=== PATIENT | female | born 1930 | race Caucasian/White ===

== ENCOUNTER 2016-11-19 10:56 | Outpatient (CLI) ==
[2016-06-03 21:12] VITALS: BMI 27.0
[2016-11-19 12:03] LABS: ALBUMIN 3.2 g/dL (3.4-5.0); ALBUMIN/GLOBULIN RATIO 0.76; ANION GAP 18.8; BILIRUBIN,TOTAL 0.28 mg/dL (0.00-1.20); BUN/CREATININE RATIO 11.04; CALCIUM 9.1 mg/dL (8.2-10.2); POTASSIUM 5.8 mmol/L (3.5-5.10); TOTAL PROTEIN 7.4 g/dL (5.8-8.1)
[2016-11-19 12:09] LABS: CREATININE 4.89 mg/dL (0.60-1.30)
== END 2016-11-19 10:57 | disposition home or self-care (01) ==
LOC: LAB 10:56
PROVIDERS: ATTEND Internal Medicine
DX: N18.9 Chronic kidney disease, unspecified (principal)
CPT/HCPCS: 36415; 80053

== ENCOUNTER 2016-11-19 12:25 | Inpatient (IN) | payer OTHER ==
[2016-11-19] MEDS ORDERED: MORPHINE 4 MG/ML SYRINGE IVP PRN (12:39)
[2016-11-19] MEDS ORDERED: NITROSTAT SL PRN (12:39)
[2016-11-19] MEDS ORDERED: ATROPINE SULFATE PFS IVP PRN (12:39)
[2016-11-19] MEDS ORDERED: VISTARIL INJ IM PRN (12:39)
[2016-11-19 12:52] LABS: BASOPHILS # (AUTO) 0.1 K/uL (0-0.2); BASOPHILS % (AUTO) 0.7 % (0.0-3.0); EOSINOPHILS # (AUTO) 0.3 K/ul (0.0-0.7); HEMATOCRIT 30.5 % (37.0-47.0); HEMOGLOBIN 9.5 g/dl (12.0-16.0); IMMATURE GRANULOCYTE % (AUTO) 0.4 % (0.0-5.0); LYMPHOCYTES % (AUTO) 23.5 (10.0-50.0); MEAN CORPUSCULAR HEMOGLOBIN 30.4 pg (27.0-31.0); MEAN CORPUSCULAR HGB CONC 31.1 (31.8-35.4); MEAN CORPUSCULAR VOLUME 97.4 fl (81.0-99.0); MONOCYTES # (AUTO) 0.7 K/uL (0.4-2.0); MONOCYTES % (AUTO) 8.7 (0-10); NEUTROPHILS # (AUTO) 5.3 K/ul (2.0-6.9); NEUTROPHILS % (AUTO) 62.7; PLATELET COUNT 299 10^3/uL (140-440); RED BLOOD COUNT 3.13 10^6/ul (4.20-5.40)
[2016-11-19] MEDS ORDERED: ZOFRAN TAB PO PRN (12:55)
[2016-11-19 13:03] LABS: ABG BASE EXCESS -4 (-2.0-2.0); ABG HCO3 22.7 (22.0-26.0); ABG PCO2 46.2 mmHg (35-45); ABG PH 7.299 (7.35-7.45); ABG TCO2 24 (22.0-28.0)
[2016-11-19 13:05] VITALS: BMI 27.6
[2016-11-19 13:07] LABS: TROPONIN I 0.014 ng/ml (0.0000-0.4000)
--- NOTE | 2016-11-19 13:43 | DI ---
EXAM: Chest one view, frontal view only. HISTORY: Anemia. Hyperkalemia. Hypertension. COMPARISON: 06/03/2010. FINDINGS: The heart size is normal. Atherosclerotic calcifications present. There is no pulmonary vascular congestion. The lungs are clear save for calcified granulomatous changes. No pleural eff usion or pneumothorax is seen. No acute osseous abnormality is identified. Degenerative changes of the shoulders of flattening of the right humeral head. Suspect small hiatal hernia . Since the pr ior study, there has been no significant interval change. IMPRESSION: No acute cardiopulmonary process.
--- NOTE | 2016-11-19 13:58 | CT ---
EXAM: CT Abdomen without contrast. CT Pelvis without contrast. HISTORY: Anemia. Abnormal renal function. COMPARISON: 11/10/2010. TECHNIQUE: Multiple axial images of the abdomen and pelvis were obtained without intravenous contra st. Images were reformatted in the coronal plane. FINDINGS: Please note that evaluation of the abdominal and pelvic structures is limited due to lack of intravenous contrast. Right middle lobe scarring noted. Degenerative changes seen in the spine with old compression defor mities of T12 and L1. Gallbladder is absent. The liver, pancreas, spleen, and adrenal glands demonstrate normal contour. There is severe bilateral hydronephrosis/hydroureter to the level of the urinary bladder. There is irregular posterior urinary bladder wall thickening. Uterus is absent. There is no evidence for bowel obstruction or acute inflammation. Diverticula are present in the co kevin. No free fluid or free air identified. Atherosclerotic calcifications are present. IMPRESSION: Severe bilateral hydronephrosis/hydroureter due to obstruction by irregular posterior urinary bladde r wall thickening, which could be infectious, inflammatory or neoplastic in nature.
[2016-11-19] MEDS: DEXTROSE 5%-1/2NS IV SOLUTION 1,000 ML IV SCH (14:00)
[2016-11-19] MEDS ORDERED: SODIUM BICARBONATE 7.5% IVP STA (14:27)
[2016-11-19 15:59] LABS: BILIRUBIN,URINE Negative (NEGATIVE); KETONES,URINE Negative (NEGATIVE); LEUKOCYTE ESTERASE ,URINE 3+ (NEGATIVE); NITRITE,URINE Positive (NEGATIVE); PROTEIN,URINE 2+ (NEGATIVE); URINE, BLOOD 2+ (NEGATIVE)
[2016-11-19] MEDS ORDERED: ZOFRAN 4 MG/2 ML IVP PRN (16:07)
[2016-11-19 16:20] LABS: ADD URINE MICROSCOPIC YES
[2016-11-19 16:22] LABS: BACTERIA,URINE 3+ (NOT PRESENT)
[2016-11-19] MEDS ORDERED: XANAX PO SCH (17:00)
[2016-11-19] MEDS ORDERED: ROCEPHIN 1 GM in SODIUM CHLORIDE 100 ML IV STA (17:06)
[2016-11-19] MEDS ORDERED: ROCEPHIN ONE (17:38)
[2016-11-19] MEDS: ZANTAC PO SCH (20:30)
[2016-11-19] MEDS: ADVAIR 100-50 DISKUS IH SCH (20:30)
[2016-11-19 21:12] LABS: TROPONIN I 0.023 ng/ml (0.0000-0.4000)
[2016-11-20] MEDS: DEXTROSE 5%-1/2NS IV SOLUTION 1,000 ML IV SCH ×2 (03:14→16:20)
[2016-11-20] MEDS: PROTONIX PO SCH (05:30)
[2016-11-20] MEDS: SYNTHROID PO SCH (05:30)
[2016-11-20 05:46] LABS: BASOPHILS # (AUTO) 0.1 K/uL (0-0.2); BASOPHILS % (AUTO) 0.4 % (0.0-3.0); EOSINOPHILS # (AUTO) 0.1 K/ul (0.0-0.7); EOSINOPHILS % (AUTO) 0.9 % (0.0-7.0); HEMATOCRIT 27.4 % (37.0-47.0); HEMOGLOBIN 8.6 g/dl (12.0-16.0); IMMATURE GRANULOCYTE % (AUTO) 0.4 % (0.0-5.0); LYMPHOCYTES # (AUTO) 1.5 K/uL (0.60-3.4); LYMPHOCYTES % (AUTO) 13.1 (10.0-50.0); MEAN CORPUSCULAR HEMOGLOBIN 30.1 pg (27.0-31.0); MEAN CORPUSCULAR HGB CONC 31.4 (31.8-35.4); MEAN CORPUSCULAR VOLUME 95.8 fl (81.0-99.0); MONOCYTES # (AUTO) 0.9 K/uL (0.4-2.0); MONOCYTES % (AUTO) 7.6 (0-10); NEUTROPHILS # (AUTO) 8.7 K/ul (2.0-6.9); NEUTROPHILS % (AUTO) 77.6; PLATELET COUNT 241 10^3/uL (140-440); RED BLOOD COUNT 2.86 10^6/ul (4.20-5.40); WHITE BLOOD COUNT 11.16 K/ul (4.6-10.2)
[2016-11-20 06:13] LABS: ALBUMIN 2.7 g/dL (3.4-5.0); ALBUMIN/GLOBULIN RATIO 0.69; ANION GAP 15.7; BILIRUBIN,TOTAL 0.29 mg/dL (0.00-1.20); BUN/CREATININE RATIO 11.53; CALCIUM 8.6 mg/dL (8.2-10.2); POTASSIUM 4.7 mmol/L (3.5-5.10); TOTAL PROTEIN 6.6 g/dL (5.8-8.1)
[2016-11-20 06:15] LABS: CREATININE 4.68 mg/dL (0.60-1.30)
[2016-11-20] MEDS ORDERED: AZACTAM IV STA (08:54)
[2016-11-20] MEDS ORDERED: SODIUM CHLORIDE IV STA (08:54)
[2016-11-20] MEDS ORDERED: NON-FORMULARY MEDICATION (Esomeprazole Magnesium [Nexium] 40 MG) PO SCH ×22 (09:00)
[2016-11-20] MEDS ORDERED: CANDESARTAN CILEXETIL 32 MG PO SCH (09:00)
[2016-11-20] MEDS ORDERED: NON-FORMULARY MEDICATION (Escitalopram Oxalate [Lexapro] 20 MG) PO SCH ×22 (09:00)
[2016-11-20] MEDS: LEXAPRO PO SCH (09:34)
[2016-11-20] MEDS: ADVAIR 100-50 DISKUS IH SCH ×2 (09:34→20:30)
[2016-11-20] MEDS: ATACAND PO SCH (09:34)
[2016-11-20] MEDS: ROCEPHIN 1 GM in SODIUM CHLORIDE 100 ML IV SCH (09:35)
[2016-11-20] MEDS: ASPIRIN EC PO SCH (09:35)
--- NOTE | 2016-11-20 10:10 | HP ---
DATE OF SERVICE: 11/19/16 REASON FOR HOSPITALIZATION/HISTORY OF PRESENT ILLNESS: This is an 86-year-old female who was seen on 11/17/16 for right shoulder pain. The patient also felt tired and fatigued. Routine labs done on 11/17/16 showed she was in acute renal failure with creatinine 4.74 with BUN of 64. Previous creatinine 1.5; BUN 78 on 06/05. K+ 5.5 with HGB/HCT 9.7 and 30.6. The patient agreed for hospitalization but states, "I don't want any dialysis." REVIEW OF SYSTEMS: CONSTITUTIONAL: Fatigue. No fever. No night sweats. HEENT: Eyes: No visual changes. No eye pain. No eye discharge. ENT: No runny nose. No epistaxis. No sinus pain. No sore throat. No odynophagia. No ear pain. No congestion. RESPIRATORY: No cough, no congestion. No hemoptysis. CARDIOVASCULAR: No angina symptoms. No CHF symptoms. No atypical chest pain for CAD. No palpitations. No shortness of breath. GASTROINTESTINAL: Mild nausea No abdominal pain. No diarrhea or constipation. No hematemesis. No hematochezia. GENITOURINARY: No hematuria. No polyuria. MUSCULOSKELETAL: Osteoarthritis pain. MICE RAISER: Dizziness. No headache. No neck pain. No syncope. No seizures. PSYCHIATRIC: Not anxious. No depression. No suicidal thoughts. No homicidal thoughts. SKIN: No rash. No lesions. No wounds. ENDOCRINE: No unexplained weight loss. No weight gain. HEMATOLOGIC/LYMPHATIC: No anemia. No purpura. No petechiae. No prolonged or excessive bleeding. No palpable lymph nodes. PERSONAL/FAMILY/SOCIAL HISTORY: The patient is a , lives by herself with the help of two sons. She is up and about, does most activity of daily living. Nonsmoker. No alcohol abuse. PAST MEDICAL/SURGICAL PROBLEMS: 1. CA of the bladder 2. Generalized anxiety disorder 3. Hypertension 4. Depression 5. COPD status post cholecystectomy 6. History of T12 fracture 7. Chronic kidney disease, Stage 3 MEDICATIONS: (HOME) 1. Fluvastatin Sodium (Lescol XL) 80 mg p.o. daily 2. Candesartan Cilexetil (Atacand) 32 mg p.o. daily 3. Ranitidine (Zantac) 150 mg p.o. bedtime 4. Esomeprazole Magnesium (Nexium) 40 mg p.o. daily 5. Levothyroxine Sodium (Synthroid) 50 mcg p.o. q.d a.c. 6. Escitalopram Oxalate (Lexapro) 20 mg p.o. daily 7. Alprazolam (Xanax) 0.5 mg p.o. q.p.m. 8. Ondansetron (Zofran) 4 mg p.o. b.i.d. p.r.n. 9. Fluticasone/Salmeterol (Advair 100-50 Diskus) one each IH b.i.d. ALLERGIES: IODINATED CONTRAST MEDIA, ORAL AND, TETRACYCLINES PHYSICAL EXAMINATION: GENERAL: Oriented times three. Pallor positive. VITAL SIGNS: Pulse 68, BP 118/70, 02 sat 95%. Height 4'9", BMI 27.9, weight 129 pounds. HEENT: Head normocephalic, atraumatic. Eyes: Extraocular muscles are intact. Pupils are equal, round and reactive to light and accommodation. Ears: No lesions. Nose appeared normal. Throat: No exudate or erythema. NECK: Supple. No JVD, no carotid bruit. No lymphadenopathy or thyromegaly. LUNGS: Clear to auscultation. Percussion note normal. Chest symmetrical. HEART: S1, S2, no S3. No murmurs. No cyanosis or clubbing. No ascites. Pulses: Dorsalis pedis and posterior tibial pulses +1 to +2 both sides. ABDOMEN: Soft. Nontender. Bowel sounds active. No CVA tenderness. No mass felt. EXTREMITIES: No edema. Full range of motion of all extremities, equal. NEUROLOGIC: No focal deficit. Cranial nerves II through XII are grossly intact. No headache, no double vision or headache. SKIN: Not dry. Intact. Turgor - normal. LYMPHATIC: No palpable lymph nodes/no lymphedema. MUSCULOSKELETAL: Normal joints with no swelling. Muscle tone is normal. RECTAL: Colonoscopy - Dr. Aguilar, 2008. Pelvic: Advised yearly. Mammogram - patient refused. LABS 11/19/16: ABGs showed pH 7.29 with p02 of 71, pc02 of 46 with oxygen saturation of 92% with base excess of minus 4. Cardiac markers are negative. T4, TSH normal. CT scan of the abdomen showed severe bilateral hydronephrosis with hydroureter due to obstruction by irregular posterior urinary bladder wall thickening. Chest x- ray normal. Hemoglobin 9.5, hematocrit 30, WBC 8,500, normal differential. Potassium 5.8. Liver profile normal. ASSESSMENT: (After reviewing the labs) 1. ACUTE RENAL FAILURE 2. METABOLIC ACIDOSIS 3. HYDRONEPHROSIS WITH HYDROURETER WITH OBSTRUCTION WITH IRREGULAR BLADDER WALL; THE PATIENT HAS A HISTORY OF CANCER OF THE BLADDER 4. HYPERKALEMIA FROM RENAL FAILURE 5. ANEMIA, MIXED 6. HYPERTENSION 7. COPD 8. STATUS POST CHOLECYSTECTOMY 9. T12 FRACTURE COMPRESSION 10. CKD STAGE 3 PRIOR TO RENAL FAILURE 11. DEPRESSION 12. GENERALIZED ANXIETY DISORDER PLAN: (Admit Regular) 1. The patient was given one ampule of sodium bicarb to bring the potassium down. 2. The patient will undergo a CBC with diff daily. 3. UA was somewhat abnormal, cloudy urine with +3 bacteria. The patient has been given Rocephin 1 gm. 4. Routine telemetry orders 5. ABG today 6. Continue all home medications 7. 1000 cc D5 1/2 NS q.12hourly 8. Daily CBC/CMP 9. T4, TSH 10. UA with culture and sensitivity 11. CT scan of abdomen and pelvis with contrast CONDITION: Stable TIME SPENT: More than 70 minutes. MTDD
[2016-11-20] MEDS: FLUVASTATIN SODIUM 80 MG PO SCH (11:02)
[2016-11-20] MEDS: XANAX PO PRN (14:01)
[2016-11-20] MEDS: ZANTAC PO SCH (20:30)
[2016-11-20] MEDS: SODIUM CHLORIDE IV SCH (20:30)
[2016-11-20] MEDS: AZACTAM IV SCH (20:30)
[2016-11-21] MEDS: DEXTROSE 5%-1/2NS IV SOLUTION 1,000 ML IV SCH ×2 (05:10→18:06)
[2016-11-21] MEDS: SYNTHROID PO SCH (05:37)
[2016-11-21] MEDS: PROTONIX PO SCH (05:37)
[2016-11-21 07:29] LABS: BASOPHILS % (AUTO) 0.3 % (0.0-3.0); EOSINOPHILS # (AUTO) 0.3 K/ul (0.0-0.7); EOSINOPHILS % (AUTO) 3.3 % (0.0-7.0); HEMATOCRIT 26.4 % (37.0-47.0); HEMOGLOBIN 8.4 g/dl (12.0-16.0); IMMATURE GRANULOCYTE % (AUTO) 0.6 % (0.0-5.0); LYMPHOCYTES # (AUTO) 1.7 K/uL (0.60-3.4); LYMPHOCYTES % (AUTO) 19.7 (10.0-50.0); MEAN CORPUSCULAR HEMOGLOBIN 30.3 pg (27.0-31.0); MEAN CORPUSCULAR HGB CONC 31.8 (31.8-35.4); MEAN CORPUSCULAR VOLUME 95.3 fl (81.0-99.0); MONOCYTES # (AUTO) 0.7 K/uL (0.4-2.0); MONOCYTES % (AUTO) 7.7 (0-10); NEUTROPHILS # (AUTO) 6.1 K/ul (2.0-6.9); NEUTROPHILS % (AUTO) 68.4; PLATELET COUNT 230 10^3/uL (140-440); RED BLOOD COUNT 2.77 10^6/ul (4.20-5.40); WHITE BLOOD COUNT 8.85 K/ul (4.6-10.2)
[2016-11-21 07:54] LABS: ALBUMIN 2.7 g/dL (3.4-5.0); ALBUMIN/GLOBULIN RATIO 0.68; ANION GAP 16.8; BILIRUBIN,TOTAL 0.27 mg/dL (0.00-1.20); BUN/CREATININE RATIO 10.51; CALCIUM 8.8 mg/dL (8.2-10.2); POTASSIUM 4.8 mmol/L (3.5-5.10); TOTAL PROTEIN 6.7 g/dL (5.8-8.1)
[2016-11-21 08:02] LABS: CREATININE 4.09 mg/dL (0.60-1.30)
[2016-11-21] MEDS: ATACAND PO SCH (08:42)
[2016-11-21] MEDS: LEXAPRO PO SCH (08:42)
[2016-11-21] MEDS: ADVAIR 100-50 DISKUS IH SCH ×2 (08:42→20:13)
[2016-11-21] MEDS: AZACTAM IV SCH ×2 (08:43→20:13)
[2016-11-21] MEDS: SODIUM CHLORIDE IV SCH ×2 (08:43→20:13)
[2016-11-21] MEDS: ASPIRIN EC PO SCH (08:43)
[2016-11-21] MEDS: TYLENOL PO PRN (08:52)
[2016-11-21] MEDS: ROCEPHIN 1 GM in SODIUM CHLORIDE 100 ML IV SCH (09:48)
[2016-11-21] MEDS: FLUVASTATIN SODIUM 80 MG PO SCH (09:48)
[2016-11-21] MEDS ORDERED: MILK OF MAGNESIA PO PRN (10:10)
[2016-11-21] MEDS: ZANTAC PO SCH (20:13)
[2016-11-21] MEDS: XANAX PO PRN (20:14)
[2016-11-21] MEDS ORDERED: INVANZ IV SCH (21:00)
[2016-11-21] MEDS ORDERED: SODIUM CHLORIDE IV SCH (21:00)
[2016-11-22 05:08] LABS: BASOPHILS % (AUTO) 0.5 % (0.0-3.0); EOSINOPHILS # (AUTO) 0.4 K/ul (0.0-0.7); HEMATOCRIT 26.6 % (37.0-47.0); HEMOGLOBIN 8.3 g/dl (12.0-16.0); IMMATURE GRANULOCYTE % (AUTO) 0.6 % (0.0-5.0); LYMPHOCYTES # (AUTO) 1.9 K/uL (0.60-3.4); LYMPHOCYTES % (AUTO) 22.8 (10.0-50.0); MEAN CORPUSCULAR HGB CONC 31.2 (31.8-35.4); MONOCYTES # (AUTO) 0.6 K/uL (0.4-2.0); MONOCYTES % (AUTO) 6.7 (0-10); NEUTROPHILS # (AUTO) 5.3 K/ul (2.0-6.9); NEUTROPHILS % (AUTO) 64.4; PLATELET COUNT 243 10^3/uL (140-440); RED BLOOD COUNT 2.77 10^6/ul (4.20-5.40); WHITE BLOOD COUNT 8.19 K/ul (4.6-10.2)
[2016-11-22] MEDS: PROTONIX PO SCH (05:37)
[2016-11-22] MEDS: SYNTHROID PO SCH (05:37)
[2016-11-22 05:40] LABS: ALBUMIN 2.6 g/dL (3.4-5.0); ALBUMIN/GLOBULIN RATIO 0.65; ANION GAP 13.8; BILIRUBIN,TOTAL 0.2 mg/dL (0.00-1.20); BUN/CREATININE RATIO 10.51; POTASSIUM 4.8 mmol/L (3.5-5.10); TOTAL PROTEIN 6.6 g/dL (5.8-8.1)
[2016-11-22 05:41] LABS: CREATININE 3.9 mg/dL (0.60-1.30)
[2016-11-22] MEDS: ADVAIR 100-50 DISKUS IH SCH ×2 (08:04→19:59)
[2016-11-22] MEDS: ATACAND PO SCH (08:05)
[2016-11-22] MEDS: LEXAPRO PO SCH (08:05)
[2016-11-22] MEDS: ROCEPHIN 1 GM in SODIUM CHLORIDE 100 ML IV SCH (08:05)
[2016-11-22] MEDS: ASPIRIN EC PO SCH (08:05)
[2016-11-22] MEDS: DEXTROSE 5%-1/2NS IV SOLUTION 1,000 ML IV SCH (08:06)
[2016-11-22] MEDS: FLUVASTATIN SODIUM 80 MG PO SCH (08:06)
[2016-11-22] MEDS: AZACTAM IV SCH ×2 (09:19→19:59)
[2016-11-22] MEDS: SODIUM CHLORIDE IV SCH ×2 (09:19→19:59)
[2016-11-22] MEDS: ZANTAC PO SCH (19:59)
[2016-11-22] MEDS: XANAX PO PRN (20:03)
[2016-11-22 20:11] LABS: HEMATOCRIT 32.8 % (37.0-47.0); HEMOGLOBIN 10.6 g/dl (12.0-16.0)
[2016-11-23] MEDS: DEXTROSE 5%-1/2NS IV SOLUTION 1,000 ML IV SCH ×2 (01:58→16:08)
[2016-11-23 04:39] LABS: BASOPHILS # (AUTO) 0.1 K/uL (0-0.2); BASOPHILS % (AUTO) 0.6 % (0.0-3.0); EOSINOPHILS # (AUTO) 0.5 K/ul (0.0-0.7); EOSINOPHILS % (AUTO) 5.3 % (0.0-7.0); HEMATOCRIT 29.7 % (37.0-47.0); HEMOGLOBIN 9.7 g/dl (12.0-16.0); IMMATURE GRANULOCYTE % (AUTO) 0.5 % (0.0-5.0); LYMPHOCYTES # (AUTO) 2.1 K/uL (0.60-3.4); LYMPHOCYTES % (AUTO) 24.2 (10.0-50.0); MEAN CORPUSCULAR HEMOGLOBIN 30.4 pg (27.0-31.0); MEAN CORPUSCULAR HGB CONC 32.7 (31.8-35.4); MEAN CORPUSCULAR VOLUME 93.1 fl (81.0-99.0); MONOCYTES # (AUTO) 0.6 K/uL (0.4-2.0); MONOCYTES % (AUTO) 6.9 (0-10); NEUTROPHILS # (AUTO) 5.3 K/ul (2.0-6.9); NEUTROPHILS % (AUTO) 62.5; PLATELET COUNT 238 10^3/uL (140-440); RED BLOOD COUNT 3.19 10^6/ul (4.20-5.40); WHITE BLOOD COUNT 8.46 K/ul (4.6-10.2)
[2016-11-23 05:00] LABS: ALBUMIN 2.5 g/dL (3.4-5.0); ALBUMIN/GLOBULIN RATIO 0.63; ANION GAP 13.6; BILIRUBIN,TOTAL 0.34 mg/dL (0.00-1.20); BUN/CREATININE RATIO 10.17; CALCIUM 8.7 mg/dL (8.2-10.2); CREATININE 3.44 mg/dL (0.60-1.30); POTASSIUM 4.6 mmol/L (3.5-5.10); TOTAL PROTEIN 6.5 g/dL (5.8-8.1)
[2016-11-23] MEDS: PROTONIX PO SCH (05:30)
[2016-11-23] MEDS: SYNTHROID PO SCH (05:30)
[2016-11-23] MEDS ORDERED: CITRATE OF MAGNESIA PO STA (08:37)
[2016-11-23] MEDS: SODIUM CHLORIDE IV SCH ×2 (08:50→21:12)
[2016-11-23] MEDS: ATACAND PO SCH (08:50)
[2016-11-23] MEDS: ADVAIR 100-50 DISKUS IH SCH ×2 (08:50→21:12)
[2016-11-23] MEDS: AZACTAM IV SCH ×2 (08:50→21:12)
[2016-11-23] MEDS: ASPIRIN EC PO SCH (08:51)
[2016-11-23] MEDS: LEXAPRO PO SCH (08:51)
[2016-11-23] MEDS: FLUVASTATIN SODIUM 80 MG PO SCH (08:52)
[2016-11-23 09:16] LABS: ABG BASE EXCESS -3 (-2.0-2.0); ABG HCO3 23.1 (22.0-26.0); ABG PCO2 43.1 mmHg (35-45); ABG PH 7.337 (7.35-7.45); ABG TCO2 24 (22.0-28.0)
[2016-11-23] MEDS: ROCEPHIN 1 GM in SODIUM CHLORIDE 100 ML IV SCH (09:58)
--- NOTE | 2016-11-23 13:20 | PCM.PROG ---
Attending Provider: ATTENDING PROVIDER: Dr. SARA DAILY DATE OF SERVICE: 11/23/16 SUBJECTIVE: This 86 year old WHITE/ F was hospitalized 11/19/16. The patient is hospitalized with acute renal failure, hyperkalemia, and hydronephrosis The patient's condition has improved remarkably. Kidney functions are better; BUN and creatinine stable. Metabolic acidosis is resolved. Hyperkalemia has resolved. Scanlon is draining clear urine today. The patient complains of lower abdominal pain. REVIEW OF SYSTEMS: CONSTITUTIONAL: No night sweats. No fatigue, malaise, lethargy. No fever or chills. HEENT: Eyes: No visual changes. No eye pain. No eye discharge. ENT: No runny nose. No epistaxis. No sinus pain. No odynophagia. No congestion. RESPIRATORY: No cough, no congestion. No hemoptysis. CARDIOVASCULAR: No angina symptoms. No CHF symptoms. No atypical chest pain for CAD. No palpitations. No shortness of breath. GASTROINTESTINAL: Appetite is better. No abdominal pain. No nausea or vomiting. No diarrhea or constipation. No hematemesis. No hematochezia. GENITOURINARY: Scanlon in place draining clear urine. No urgency. No frequency. No dysuria. No hematuria. No obstructive symptoms. No discharge. No pain. No significant abnormal bleeding. MUSCULOSKELETAL: No musculoskeletal pain; no joint swelling. NEUROLOGICAL: Awake, alert, oriented to time, place and person. No headache. No neck pain. No syncope. No seizures. No dizziness. PSYCHIATRIC: Not anxious. No depression. No suicidal thoughts. No homicidal thoughts. SKIN: No rash. No lesions. No wounds. ENDOCRINE: No unexplained weight loss. No weight gain. HEMATOLOGIC/LYMPHATIC: No anemia. No purpura. No petechiae. No prolonged or excessive bleeding. No palpable lymph nodes. PHYSICAL EXAMINATION: GENERAL: The patient is awake, alert and oriented, sitting in the chair in no distress. VITAL SIGNS: Temperature 97.1 F, Pulse 67, Respiratory Rate 17, BP 172/83, Pulse Ox 94% HEENT: Head normocephalic, atraumatic. Eyes: Extraocular muscles are intact. Pupils are equal, round and reactive to light and accommodation. Ears: No lesions. Nose appeared normal. Throat: No exudate or erythema. NECK: Supple. No JVD, no carotid bruit. No lymphadenopathy or thyromegaly. LUNGS: Clear to auscultation. Percussion note normal. Chest symmetrical. HEART: S1, S2, no S3. No murmurs. No cyanosis or clubbing. No ascites. Pulses: Dorsalis pedis and posterior tibial pulses +1 to +2 both sides. ABDOMEN: Soft. Non-tender. Bowel sounds active. No CVA tenderness. No mass felt. EXTREMITIES: No edema. Full range of motion of all extremities, equal. NEUROLOGIC: No focal deficit. Cranial nerves II through XII are grossly intact. No headache, no double vision or headache. SKIN: Not dry. Intact. Turgor-normal. LYMPHATIC: No palpable lymph nodes/no lymphedema. MUSCULOSKELETAL: Normal joints with no swelling. Muscle tone is normal. LAB REVIEW: 11/23/16 04:30 11/23/16 04:30 11/23/16 04:30: WBC 8.46, RBC 3.19 L, Hgb 9.7 L, Hct 29.7 L, MCV 93.1, MCH 30.4 , MCHC 32.7, RDW Coeff of Roberta 14.2, Plt Count 238, Immature Gran % (Auto) 0.5, Neut % (Auto) 62.5, Lymph % (Auto) 24.2, [place] % (Auto) 6.9, Eos % (Auto) 5.3, Baso % (Auto) 0.6, Immature Gran # (Auto) 0.0, Neut # 5.3, Lymph # 2.1, [place] # 0.6, Eos # 0.5, Baso # 0.1, Sodium 139, Potassium 4.6, Chloride 106, Carbon Dioxide 24, Anion Gap 13.6, BUN 35 H, Creatinine 3.44 H, Estimated GFR (MDRD) 13.00, BUN/Creatinine Ratio 10.17, Glucose 109, Calcium 8.7, Total Bilirubin 0.34, AST 17, ALT 16, Alkaline Phosphatase 74, Total Protein 6.5, Albumin 2.5 L , Globulin 4.0, Albumin/Globulin Ratio 0.63 11/22/16 20:09: Hgb 10.6 L, Hct 32.8 L D 11/22/16 09:10: Blood Type A POSITIVE, Antibody Screen Negative, Crossmatch (AHG ) See Detail ASSESSMENT: 1. Acute renal failure, resolving 2. Hyperkalemia, resolved 3. Appetite is better 4. Constipation, will give Mag Citrate 5. Anemia from renal failure. The patient has been given one unit of PRBC. Hemoglobin (9.7) and hematocrit (29.7) are better than yesterday. PLAN: 1. CT scan of abdomen and pelvis w/o contrast 2. ABG 3. 1/2 bottle of Mag Citrate to help with constipation 4. PT evaluation Plan and coordination of the patient's care discussed in the presence of Home Improvement Contractor and nurse. CONDITION: Stable SCRIBED BY: BEAR BUTT Bander Operator scribed while in presence of service performed by Dr. SARA DAILY on 11/23/16 ([id number])
--- NOTE | 2016-11-23 13:51 | PN ---
DATE OF SERVICE: 11/21/16 SUBJECTIVE: The patient is a 86 year old white female hospitalized with acute renal failure , hyperkalemia and anemia. The patient on further testing has hydronephrosis originating from ureterovesical junction obstructions bilaterally could be from inflammation infection and history of bladder cancer somehow causing factors which are not known to me with some obstructions. The patient's labs tests and everything has been sent to Dr. Callahan/Dr. Conway, he is supposed to be plant technician/control room operator over the weekend. The patient's condition has improved and the patient is feeling a lot better. Urine output is adequate. She has practically 1,500cc urine output within 12 hours. Her creatinine and BUN has improved to 4 and 30 now which is quite a bit improving from 4.6 and 54 on the previous day. The patient does not have symptoms of fluid overload. REVIEW OF SYSTEMS: CONSTITUTIONAL: No night sweats. No fatigue, malaise, lethargy. No fever or chills. HEENT: Eyes: No visual changes. No eye pain. No eye discharge. ENT: No runny nose. No epistaxis. No sinus pain. No sore throat. No odynophagia. No congestion. RESPIRATORY: No cough, no congestion. No hemoptysis. CARDIOVASCULAR: No angina symptoms. No CHF symptoms. No atypical chest pain for CAD. No palpitations. No shortness of breath. No PND. No orthopnea. GASTROINTESTINAL: No abdominal pain. Mild nausea. No diarrhea or constipation. No hematemesis. No hematochezia. Appetite seems to be improving. The strength seems to be improving. GENITOURINARY: No urgency. No frequency. No dysuria. No hematuria. No obstructive symptoms. No discharge. No pain. No significant abnormal bleeding. MUSCULOSKELETAL: No musculoskeletal pain; no joint swelling. NEUROLOGICAL: No headache. No neck pain. No syncope. No seizures. No dizziness. PSYCHIATRIC: Not anxious. No depression. No suicidal thoughts. No homicidal thoughts. SKIN: No rash. No lesions. No wounds. ENDOCRINE: No unexplained weight loss. No weight gain. HEMATOLOGIC/LYMPHATIC: No anemia. No purpura. No petechiae. No prolonged or excessive bleeding. No palpable lymph nodes. PHYSICAL EXAMINATION: GENERAL: The patient is oriented to time, place and person. VITAL SIGNS: Temperature 97.2, pulse 60, respiratory rate 20, blood pressure 130/66 and pulse ox 96%. HEENT: Head normocephalic, atraumatic. Eyes: Extraocular muscles are intact. Pupils are equal, round and reactive to light and accommodation. Ears: No lesions. Nose appeared normal. Throat: No exudate or erythema. NECK: Supple. No JVD, no carotid bruit. No lymphadenopathy or thyromegaly. LUNGS: Decreased breath sounds but clear to auscultation. Percussion note normal. Chest symmetrical. HEART: S1, S2, no S3. No murmurs. No cyanosis or clubbing. No ascites. Pulses: Dorsalis pedis and posterior tibial pulses +1 to +2 both sides. ABDOMEN: Soft. Nontender. Bowel sounds active. No CVA tenderness. No mass felt. EXTREMITIES: No edema. Full range of motion of all extremities, equal. NEUROLOGIC: No focal deficit. Cranial nerves II through XII are grossly intact. No headache, no double vision or headache. SKIN: Not dry. Intact. Turgor - normal. LYMPHATIC: No palpable lymph nodes/no lymphedema. MUSCULOSKELETAL: Normal joints with no swelling. Muscle tone is normal. LABS: hgb 8, hct 27. creatinine 4 and BUN 30. The patient's urine showed gram negative rods. ASSESSMENT: 1. Acute renal failure 2. Hyperkalemia 3. Metabolic acidosis 4. Bilateral Hydronephrosis, post renal obstruction with problem that ureterovesical junction. PLAN: 1. Continue IV fluids 2. Continue Rocephin 3. Continue to monitor patient for fluid overload 4. Zofran IV to be give for nausea CONDITION: Stable and improving TIME SPENT: More than 30 minutes. Plan and coordination of the patient's care discussed in the presence of nurse. PATEL
--- NOTE | 2016-11-23 14:30 | PN ---
DATE OF SERVICE: 11/22/16 SUBJECTIVE: The patient is an 86 year old white female hospitalized with acute renal failure with hydronephrosis and hydroureter and hyperkalemia with metabolic acidosis. The patient's condition has steadily improved and her appetite it somewhat better and she is still weak. Her urine output is adequate. REVIEW OF SYSTEMS: CONSTITUTIONAL: No night sweats. Still weakness. No fever or chills. HEENT: Eyes: No visual changes. No eye pain. No eye discharge. ENT: No runny nose. No epistaxis. No sinus pain. No sore throat. No odynophagia. No congestion. RESPIRATORY: No cough, no congestion. No hemoptysis. CARDIOVASCULAR: No angina symptoms. No CHF symptoms. No atypical chest pain for CAD. No palpitations. No shortness of breath. No PND. No orthopnea. No chest pain. GASTROINTESTINAL: No abdominal pain. No nausea or vomiting. No diarrhea or constipation. No hematemesis. No hematochezia. Appetite is improving some. GENITOURINARY: No urgency. No frequency. No dysuria. No hematuria. No obstructive symptoms. No discharge. No pain. No significant abnormal bleeding. MUSCULOSKELETAL: No musculoskeletal pain; no joint swelling. NEUROLOGICAL: No headache. No neck pain. No syncope. No seizures. No dizziness. PSYCHIATRIC: Not anxious. No depression. No suicidal thoughts. No homicidal thoughts. SKIN: No rash. No lesions. No wounds. ENDOCRINE: No unexplained weight loss. No weight gain. HEMATOLOGIC/LYMPHATIC: No anemia. No purpura. No petechiae. No prolonged or excessive bleeding. No palpable lymph nodes. PHYSICAL EXAMINATION: GENERAL: The patient is oriented to time, place and person. VITAL SIGNS: Temperature 97.7, pulse 66, respiratory rate 14, blood pressure 153/73 and pulse ox 94%. HEENT: Head normocephalic, atraumatic. Eyes: Extraocular muscles are intact. Pupils are equal, round and reactive to light and accommodation. Ears: No lesions. Nose appeared normal. Throat: No exudate or erythema. NECK: Supple. No JVD, no carotid bruit. No lymphadenopathy or thyromegaly. LUNGS: Decreased breath sounds but clear to auscultation. Percussion note normal. Chest symmetrical. HEART: S1, S2, no S3. No murmurs. No cyanosis or clubbing. No ascites. Pulses: Dorsalis pedis and posterior tibial pulses +1 to +2 both sides. ABDOMEN: Soft. Nontender. Bowel sounds active. No CVA tenderness. No mass felt. EXTREMITIES: No edema. Full range of motion of all extremities, equal. NEUROLOGIC: No focal deficit. Cranial nerves II through XII are grossly intact. No headache, no double vision or headache. SKIN: Not dry. Intact. Turgor - normal. LYMPHATIC: No palpable lymph nodes/no lymphedema. MUSCULOSKELETAL: Normal joints with no swelling. Muscle tone is normal. LABS: Hgb 8.3, hct 26, WBC 8,000 normal differential, creatinine 4, BUN 43 and potassium 4.8. ASSESSMENT: 1. Acute renal failure from post renal obstruction likely at the ureterovesical junction cause could be infection and or bladder cancer 2. Urinary tract infection with gram negative rods 3. Metabolic acidosis secondary to renal failure 4. Hyperkalemia, resolved 5. Anemia Secondary to chronic renal failure and or nutritional PLAN: 1. Type and cross match two units 2. Transfuse one unit 3. Continue Rocephin 4. Dulcolax suppository for constipation 5. Continue IV fluids 6. Monitor input and output 7. Daily CBC and CMP 8. Will repeat CT scan of the abdomen tomorrow. TIME SPENT: More than 30 minutes. Plan and coordination of the patient's care discussed in the presence of nurse. PATEL
--- NOTE | 2016-11-23 15:19 | CT ---
EXAM: CT ABDOMEN AND PELVIS HISTORY: Hydronephrosis, follow-up. Bladder cancer. TECHNIQUE: CT abdomen and pelvis without intravenous contrast. Images were reconstructed using 5 m m section thickness. Reformations were prepared. COMPARISON: 11/19/2016 FINDINGS: Moderate bilateral hydronephrosis and hydroureter remain unchanged. No renal or ureteral calculi ar e identified. Interval placement of a Scanlon catheter with decompression of the urinary bladder. Th e asymmetric thickening of the bladder wall previously described is poorly seen secondary to the non distension of the organ. This may be related to the patient's history of bladder cancer. There is gas within the left ureter possibly related to the catheterization. Correlate clinically for any liane dence of collecting system infection. No significant perinephric fat stranding. No obvious focal hepatic lesions identified within limits of this unenhanced exam. Splenic calcific ations consistent with old granulomatous disease. Pancreas and adrenal glands are within normal head its. Moderate atherosclerotic disease with no aneurysmal caliber. Small sliding hiatal hernia. Non obstructive bowel gas pattern. Mild sigmoid diverticulosis. No uterus is seen. There is a fatty r ight inguinal hernia which contains a small amount of fluid within the subcutaneous sac without sign ificant change. The bones reveal severe degenerative disc and facet disease of the thoracolumbar sp ine with severe chronic appearing compression fracture at T12. Lung bases are clear. No pneumoperi toneum. IMPRESSION: 1. No significant change in the previously described hydronephrosis or other findings of the kidney s, ureters and urinary bladder. There is newly developed gas within the left ureter. See above for details, first paragraph of report. 2. Small sliding hiatal hernia. 3. Mild sigmoid diverticulosis. 4. Fatty right inguinal hernia is stable. 5. Atherosclerotic disease.
--- NOTE | 2016-11-23 16:24 | RS.PTINEVL ---
Subjective - Patient information Date of Evaluation: 11/23/16 Date of Arrival on Unit: 11/19/16 Usual Living Arrangement: son Home Environment: House, Level/No stairs Medical History: Hypertension, COPD Medical History Comments:: Anxiety, Depression Surgical History: Cholecystectomy, Tonsillectomy Surgical History Comments:: appendectomy, cataract removal, hernia repair Subjective Information/ Patient Comments:: Patient states she has felt weak. States she is feeling better. States she does not normally use an assistive device, but has a walker of her husbands. Her a year ago. - Level of function Prior to this admission, the patient could do the following:: Independent Selfcare, Independent ADL's, Independent Ambulation, Perform Avionics Test Technician/ Cooking Current Level of Function: Partially Dependent Current Equipment Used at Home: shower chair Interventions - Objective Patient Orientation: Person, Place, Time, Situation Current Interventions: IV's, Lozano Catheter Range of Motion - ROM Right Upper Extremity AROM: WFL's Left Upper Extremity AROM: WFL's Right Lower Extremity AROM: WFL's Left Lower Extremity AROM: WFL's Muscle Strength - Muscle Strength Comments:: Patient demonstrates generalized weakness. Balance - Sitting Balance and Reactions Static Sitting Balance: Good Dynamic Sitting Balance: Good - Standing Balance and Reactions Static Standing Balance: Fair Dynamic Standing Balance: Fair Functional Mobility - Bed Mobility Supine to Sit: CGA, 1 person assist, Verbal Cues, Tactile Cues Sit to Supine: CGA, Min Assist, 1 person assist, Verbal Cues, Tactile Cues - Transfers Sit to Stand: CGA, 1 person assist, Verbal Cues, Tactile Cues Stand to Sit: CGA, 1 person assist, Verbal Cues, Tactile Cues Stand Pivot Transfers: CGA, 1 person assist, Verbal Cues, Tactile Cues - Safety Awareness Safety Awareness: Fair Ambulation - Ambulation Weight Bearing Status: FWB Assistive Device Used: No Assistive Device Distance: 80 feet Assistance needed with Ambulation: CGA, 2 person assist, Verbal Cues, Tactile Cues Quality of Ambulation: Assist of 2 required for IV pole and lozano. Patient demonstrates a few times of loss of balance while walking. Denies dizziness. Gait Deviations: Narrow Based gait, Short stride Factors Affecting Ambulation: Decreased Balance, Weakness, Decreased Safety Treatment time - Time with patient Total treatment time: 21 (mins) Assessment - Assessment Problem List:: Decreased level of function, Requires training/education, Decreased safety/Risk of falls, Weakness Rehab Potential: Good Further Therapy Indicated?: Yes Short Term Goals GOAL #1: Sit to stand with use of UE to push from bed/chair. Goal to be met by: 11/25/16 GOAL #2: Pt to use RW with CGA assist of one 100 feet. Goal to be met by: 11/25/16 Desktop Support Technician Goals GOAL #1: Pt independent with bed mobility. Goal to be met by: 11/27/16 GOAL #2: Pt transfers with SBA with good safety. Goal to be met by: 11/27/16 GOAL #3: Amb. with RW with SBA and good safety. Goal to be met by: 11/27/16 Plan Plan of Care: Therapeutic EX, Neuromuscular Re-Educ, Therapeutic Activity, Self- Care/Home Management Frequency of Treatment: 1-2 X day, as tolerated Duration of Treatment: 2-4 days Anticipated Discharge Destination: Home
[2016-11-23] MEDS: ZANTAC PO SCH (21:12)
[2016-11-24] MEDS: TYLENOL PO PRN (01:05)
[2016-11-24 05:53] VITALS: TEMP 97.4
[2016-11-24] MEDS: PROTONIX PO SCH (05:55)
[2016-11-24] MEDS: SYNTHROID PO SCH (05:55)
[2016-11-24] MEDS: DEXTROSE 5%-1/2NS IV SOLUTION 1,000 ML IV SCH (05:59)
[2016-11-24 06:21] LABS: BASOPHILS % (AUTO) 0.5 % (0.0-3.0); EOSINOPHILS # (AUTO) 0.5 K/ul (0.0-0.7); EOSINOPHILS % (AUTO) 5.5 % (0.0-7.0); HEMATOCRIT 31.4 % (37.0-47.0); HEMOGLOBIN 10.4 g/dl (12.0-16.0); IMMATURE GRANULOCYTE % (AUTO) 0.6 % (0.0-5.0); LYMPHOCYTES # (AUTO) 2.2 K/uL (0.60-3.4); MEAN CORPUSCULAR HEMOGLOBIN 30.7 pg (27.0-31.0); MEAN CORPUSCULAR HGB CONC 33.1 (31.8-35.4); MEAN CORPUSCULAR VOLUME 92.6 fl (81.0-99.0); MONOCYTES # (AUTO) 0.6 K/uL (0.4-2.0); MONOCYTES % (AUTO) 7.6 (0-10); NEUTROPHILS % (AUTO) 59.8; PLATELET COUNT 262 10^3/uL (140-440); RED BLOOD COUNT 3.39 10^6/ul (4.20-5.40); WHITE BLOOD COUNT 8.41 K/ul (4.6-10.2)
[2016-11-24 06:42] LABS: ALBUMIN 2.8 g/dL (3.4-5.0); ALBUMIN/GLOBULIN RATIO 0.67; ANION GAP 14.6; BILIRUBIN,TOTAL 0.39 mg/dL (0.00-1.20); BUN/CREATININE RATIO 10.67; CALCIUM 9.4 mg/dL (8.2-10.2); CREATININE 3.28 mg/dL (0.60-1.30); POTASSIUM 4.6 mmol/L (3.5-5.10)
[2016-11-24] MEDS: XANAX PO PRN (07:54)
[2016-11-24] MEDS: ASPIRIN EC PO SCH (07:54)
[2016-11-24] MEDS: LEXAPRO PO SCH (08:00)
[2016-11-24] MEDS: ATACAND PO SCH (08:00)
[2016-11-24] MEDS: ADVAIR 100-50 DISKUS IH SCH (08:01)
[2016-11-24] MEDS ORDERED: NORVASC PO STA (08:27)
[2016-11-24] MEDS: SODIUM CHLORIDE IV SCH (09:35)
[2016-11-24] MEDS: AZACTAM IV SCH (09:35)
[2016-11-24] MEDS: FLUVASTATIN SODIUM 80 MG PO SCH (09:36)
[2016-11-24] MEDS: ROCEPHIN 1 GM in SODIUM CHLORIDE 100 ML IV SCH (10:25)
[2016-11-24 10:38] VITALS: BP 138/70
--- NOTE | 2016-11-24 10:39 | CM.DICTOOL ---
ADMISSION: 11/19/16 12:25 DISCHARGE: Transfer to [facility] 11/24/2016 DATE OF SERVICE: 11/24/16 FINAL DIAGNOSIS Acute Renal Failure secondary to post renal obstruction from bladder wall thickening Metabolic Acidosis Anemia, transfusion of one unit packed cells Hyperkalemia UTI, Klebsiella Pneumoniae Hypertension Depression Bladder Cancer LAST VITALS Temp Pulse Resp BP Pulse Ox 97.4 F L 62 22 126/80 97 11/24/16 05:52 11/24/16 05:52 11/24/16 05:52 11/24/16 09:46 11/24/16 05:52 ACTIVE HOME MEDICATIONS Alprazolam (Xanax) 0.5 mg PO BID PRN PRN Reason: Anxiety Last Admin: 11/24/16 07:54 Dose: 0.5 mg Amlodipine Besylate (Norvasc) 5 mg PO BEDTIME [facility] (new) Candesartan Cilexetil (Atacand) 32 mg PO DAILY [facility] Last Admin: 11/24/16 08:00 Dose: 32 mg Escitalopram Oxalate (Lexapro) 20 mg PO DAILY [facility] Last Admin: 11/24/16 08:00 Dose: 20 mg Levothyroxine Sodium (Synthroid) 50 mcg PO QDAC [facility] Last Admin: 11/24/16 05:55 Dose: 50 mcg Non-Formulary Medication (Fluvastatin Sodium [Lescol Xl]) 80 mg PO DAILY [facility] Last Admin: 11/24/16 09:36 Dose: Not Given Ondansetron HCl (Zofran Tab) 4 mg PO BID PRN PRN Reason: Nausea / Vomiting Last Admin: 11/19/16 14:48 Dose: 4 mg Pantoprazole Sodium (Protonix) 40 mg PO QDAC [facility] Last Admin: 11/24/16 05:55 Dose: 40 mg Ranitidine HCl (Zantac) 150 mg PO BEDTIME [facility] Last Admin: 11/23/16 21:12 Dose: 150 mg Fluticasone/Salmeterol (Advair 100-50 Diskus) 1 puff IH BID [facility] Last Admin: 11/24/16 08:01 Dose: 1 puff ALLERGIES Iodinated Contrast Media - Oral and [Iodinated Contrast Media - IV Dye] Adverse Reaction (Verified 06/03/16 21:14) Hives Tetracyclines Adverse Reaction (Verified 06/03/16 21:14) Difficulty Swallowing NEW PRESCRIPTIONS: Norvasc 5 mg take at bedtime daily SMOKING: Not Applicable DISEASE SPECIFIC EDUCATION: Hydronephrosis Labs Medications Transfer LAB REVIEW: 11/24/16 06:19 11/24/16 06:19 11/24/16 06:19: WBC 8.41, RBC 3.39 L, Hgb 10.4 L, Hct 31.4 L, MCV 92.6, MCH 30.7 , MCHC 33.1, RDW Coeff of Roberta 14.2, Plt Count 262, Immature Gran % (Auto) 0.6, Neut % (Auto) 59.8, Lymph % (Auto) 26.0, [place] % (Auto) 7.6, Eos % (Auto) 5.5, Baso % (Auto) 0.5, Immature Gran # (Auto) 0.1, Neut # 5.0, Lymph # 2.2, [place] # 0.6, Eos # 0.5, Baso # 0.0, Sodium 139, Potassium 4.6, Chloride 104, Carbon Dioxide 25, Anion Gap 14.6, BUN 35 H, Creatinine 3.28 H, Estimated GFR (MDRD) 13.00, BUN/Creatinine Ratio 10.67, Glucose 108, Calcium 9.4, Total Bilirubin 0.39, AST 17, ALT 17, Alkaline Phosphatase 82, Total Protein 7.0, Albumin 2.8 L , Globulin 4.2, Albumin/Globulin Ratio 0.67 PLAN: Transfer to [facility] to Dr. Hedrick Consult Dr. Callahan, urology Diet: Regular Activity: Up to chair and bathroom with help. Ambulate with assistance. Medications given today: Azactam 250 mg IV infusion Norvasc 5 mg now dose for hypertension Zofran 4 mg IV for nausea Rocephin 1 gram IV Patient to see Dr. Collier 5 days after discharge from [facility]. Office number for appointment [phone] Ms. Rose is alert and oriented x 3. She reports she is tired, slightly nauseated today and has mild lower abdominal discomfort. Last stool noted was a small amount on 11-23-2016. Her appetite is fair, eating 50% of meals. A lozano catheter is patent with good urinary output of clear yellow urine. Occasional blood clot and hematuria noted. Ms. Rose is ambulatory to the bathroom and transfers from the bed to the chair with assistance of one staff member. She normally does not use an assistive device for ambulation, but has access to a walker and a cane in the home. Ms. Rose plans to discharge to her home where she lives with her son, Adrian. Skin is in good condition except for bruising noted to both hands, arms from IV's. Carlos A Collier MD
--- NOTE | 2016-11-24 11:06 | PCM.PROG ---
Attending Provider: ATTENDING PROVIDER: Dr. SARA DAILY DATE OF SERVICE: 11/24/16 SUBJECTIVE: This 86 year old WHITE/ F was hospitalized 11/19/16. The patient is hospitalized with acute renal failure, metabolic acidosis and hyperkalemia. The patient also has UTI with Klebsiella which has been treated with Rocephin and Azactam. Metabolic acidosis is better, kidney functions are better. REVIEW OF SYSTEMS: CONSTITUTIONAL: No night sweats. No fatigue, malaise, lethargy. No fever or chills. HEENT: Eyes: No visual changes. No eye pain. No eye discharge. ENT: No runny nose. No epistaxis. No sinus pain. No odynophagia. No congestion. RESPIRATORY: No cough, no congestion. No hemoptysis. CARDIOVASCULAR: No angina symptoms. No CHF symptoms. No atypical chest pain for CAD. No palpitations. No shortness of breath. GASTROINTESTINAL: Appetite is not up to par. Mild nausea. No abdominal pain. No vomiting. No diarrhea or constipation. No hematemesis. No hematochezia. GENITOURINARY: Scanlon cather draining clear urine. No urgency. No frequency. No dysuria. No hematuria. No obstructive symptoms. No discharge. No pain. No significant abnormal bleeding. MUSCULOSKELETAL: No musculoskeletal pain; no joint swelling. NEUROLOGICAL: Awake, alert, oriented to time, place and person. No headache. No neck pain. No syncope. No seizures. No dizziness. PSYCHIATRIC: Not anxious. No depression. No suicidal thoughts. No homicidal thoughts. SKIN: No rash. No lesions. No wounds. ENDOCRINE: No unexplained weight loss. No weight gain. HEMATOLOGIC/LYMPHATIC: No anemia. No purpura. No petechiae. No prolonged or excessive bleeding. No palpable lymph nodes. PHYSICAL EXAMINATION: GENERAL: The patient is awake, alert and oriented, sitting in the chair in no distress. VITAL SIGNS: Temperature 97.4 F, Pulse 62, Respiratory Rate 22, BP 179/87, Pulse Ox 97% HEENT: Head normocephalic, atraumatic. Eyes: Extraocular muscles are intact. Pupils are equal, round and reactive to light and accommodation. Ears: No lesions. Nose appeared normal. Throat: No exudate or erythema. NECK: Supple. No JVD, no carotid bruit. No lymphadenopathy or thyromegaly. LUNGS: Clear to auscultation. Percussion note normal. Chest symmetrical. HEART: S1, S2, no S3. No murmurs. No cyanosis or clubbing. No ascites. Pulses: Dorsalis pedis and posterior tibial pulses +1 to +2 both sides. ABDOMEN: Soft. Non-tender. Bowel sounds active. No CVA tenderness. No mass felt. EXTREMITIES: No edema. Full range of motion of all extremities, equal. NEUROLOGIC: No focal deficit. Cranial nerves II through XII are grossly intact. No headache, no double vision or headache. SKIN: Not dry. Intact. Turgor-normal. LYMPHATIC: No palpable lymph nodes/no lymphedema. MUSCULOSKELETAL: Normal joints with no swelling. Muscle tone is normal. LAB REVIEW: 11/24/16 06:19 11/24/16 06:19 11/24/16 06:19: WBC 8.41, RBC 3.39 L, Hgb 10.4 L, Hct 31.4 L, MCV 92.6, MCH 30.7 , MCHC 33.1, RDW Coeff of Roberta 14.2, Plt Count 262, Immature Gran % (Auto) 0.6, Neut % (Auto) 59.8, Lymph % (Auto) 26.0, [place] % (Auto) 7.6, Eos % (Auto) 5.5, Baso % (Auto) 0.5, Immature Gran # (Auto) 0.1, Neut # 5.0, Lymph # 2.2, [place] # 0.6, Eos # 0.5, Baso # 0.0, Sodium 139, Potassium 4.6, Chloride 104, Carbon Dioxide 25, Anion Gap 14.6, BUN 35 H, Creatinine 3.28 H, Estimated GFR (MDRD) 13.00, BUN/Creatinine Ratio 10.67, Glucose 108, Calcium 9.4, Total Bilirubin 0.39, AST 17, ALT 17, Alkaline Phosphatase 82, Total Protein 7.0, Albumin 2.8 L , Globulin 4.2, Albumin/Globulin Ratio 0.67 11/23/16 08:37: Puncture Site Lbrach, O2 Saturation 94.0 L, ABG pH 7.337 L, ABG pCO2 43.1, ABG pO2 75.0 L, ABG HCO3 23.1, ABG Total CO2 24, ABG Base Excess -3 L , FiO2 % 21.0 ASSESSMENT: 1. Acute renal failure, post renal obstruction at ureterovesical junction 2. History of bladder cancer 3. UTI with Klebsiella 4. Metabolic acidosis PLAN: 1 Continue IV antibiotics, IV fluids 2. Monitor CBC and CMP 3. Will transfer her to [facility] for further urological care 4. Norvasc 5 mg now and each evening Plan and coordination of the patient's care discussed in the presence of Assistant To The Ceo and nurse. EDUCATION: Discussed with the patient plan of care with possible transfer to [facility] for further urological care. The patient voices understanding and is in agreement CONDITION: Stable SCRIBED BY: BEAR [employer]T Aircraft Engine Mechanic Overhaul scribed while in presence of service performed by Dr. SARA DAILY on 11/24/16 ([id number])
[2016-11-24] MEDS ORDERED: NORVASC PO SCH (21:00)
--- NOTE | 2016-11-27 09:45 | DS ---
DATE OF SERVICE: 11/24/16 - TRANSFERRED TO [facility] FINAL DIAGNOSIS: 1. ACUTE RENAL FAILURE SECONDARY TO POST RENAL OBSTRUCTION FROM BLADDER WALL THICKENING 2. METABOLIC ACIDOSIS 3. ANEMIA, TRANSFUSION OF ONE UNIT PACKED CELLS 4. HYPERKALEMIA 5. UTI, KLEBSIELLA PNEUMONIAE 6. HYPERTENSION 7. DEPRESSION 8. BLADDER CANCER VITAL SIGNS: Temperature 97.4, pulse 62, respiratory rate 22, BP 126/80, pulse ox 97 DISCHARGE INSTRUCTIONS: Transfer to [facility] to Dr. Hedrick. Consult Dr. Callahan, Urology. MEDICATIONS AT TRANSFER: 1. Fluvastatin Sodium (Lescol XL) 80 mg p.o. daily 2. Candesartan Cilexetil (Atacand) 32 mg p.o. daily 3. Ranitidine (Zantac) 150 mg p.o. bedtime 4. Esomeprazole (Nexium) 40 mg p.o. daily 5. Levothyroxine (Synthroid) 50 mcg p.o. q.d a.c. 6. Escitalopram Oxalate (Lexapro) 20 mg p.o. daily 7. Alprazolam (Xanax) 0.5 mg p.o. q.p.m. 8. Ondansetron (Zofran) 4 mg p.o. b.i.d. p.r.n. 9. Fluticasone/Salmeterol (Advair 100-50 Diskus) one each IH b.i.d. NEW PRESCRIPTIONS: Norvasc 5 mg take at bedtime daily DIET INSTRUCTIONS: Regular ACTIVITY: Up to chair and bathroom with help. Ambulate with assistance. SMOKING: N/A DISEASE SPECIFIC EDUCATION: Hydronephrosis; labs; medications; transfer HOSPITAL COURSE: This 86-year-old white female hospitalized with acute renal failure, hyperkalemia, metabolic acidosis. Since acute renal failure was based on hydronephrosis and hydroureter with obstruction at ureterovesical junction, the patient has repeated scraping of urinary bladder for CA of the bladder, possibility of reflux causing this hydronephrosis and hydroureter that was decided after discussing the case with Dr. Callahan. The patient was given IV fluids. Urine output has increased. Her BUN and creatinine from 4 and 50 respectively dropped to 3.2 and 35 within 5 days. The patient still had some symptoms of uremia. She was given one unit of packed red cells because her hemoglobin dropped to 8 with hematocrit of 24 likely from renal failure. The patient is up and about, oriented to time, place and person. She was also treated for Klebsiella Pneumoniae, urinary tract infection with Rocephin and Azactam. The patient improved to some extent with no fever, no chills with some improvement in her appetite. Scanlon catheter is draining clear urine. Dr. Callahan was called, the hospitalist who accepted the patient's transfer. The patient has accepted to be transferred to [facility]. CONDITION AT TIME OF TRANSFER: Stable. TIME SPENT: More than 60 minutes. MTDD
== END 2016-11-24 11:40 | disposition short-term general hospital (02) | DRG 683 ==
LOC: MEDSURG A 12:25
PROVIDERS: ADMIT Internal Medicine; ATTEND Internal Medicine
PROC: 30233N1 Transfusion of Nonautologous Red Blood Cells into Peripheral Vein, Percutaneous Approach (ICD-10-PCS; principal; 2016-11-22)
DX: N17.9 Acute kidney failure, unspecified (principal); N13.4 Hydroureter; E87.2 Acidosis; N39.0 Urinary tract infection, site not specified; N13.0 Hydronephrosis with ureteropelvic junction obstruction; N18.9 Chronic kidney disease, unspecified; I10 Essential (primary) hypertension; D64.9 Anemia, unspecified; E87.5 Hyperkalemia; B96.1 Klebsiella pneumoniae [K. pneumoniae] as the cause of diseases classified elsewhere; J44.9 Chronic obstructive pulmonary disease, unspecified; F32.9 Major depressive disorder, single episode, unspecified; K59.00 Constipation, unspecified; Z85.51 Personal history of malignant neoplasm of bladder; Z79.899 Other long term (current) drug therapy
CPT/HCPCS: 36415; 36430; 80053; 81001; 82550; 82803; 83874; 84439; 84443; 84484; 85014; 85018; 85025; 86850; 86900; 86922; 87086; 87186; 93005; 93010; 97802

== ENCOUNTER 2016-11-24 11:51 | Outpatient (CLI) | END 2016-11-24 11:52 | LOC: AMBL 11:51 | PROVIDERS: ATTEND Internal Medicine | DX: E87.5 Hyperkalemia (principal); D64.9 Anemia, unspecified; N17.9 Acute kidney failure, unspecified ==

== ENCOUNTER 2016-12-12 18:13 | Outpatient (CLI) ==
[2016-12-12 18:33] VITALS: BMI 20.9
== END 2016-12-12 18:14 ==
LOC: AMBL 18:13
PROVIDERS: ATTEND Internal Medicine
DX: R11.2 Nausea with vomiting, unspecified (principal); R19.7 Diarrhea, unspecified; R53.1 Weakness; R00.0 Tachycardia, unspecified; R10.9 Unspecified abdominal pain; N39.0 Urinary tract infection, site not specified; N18.9 Chronic kidney disease, unspecified

== ENCOUNTER 2016-12-12 18:23 | Emergency (ER) ==
[2016-12-12] MEDS ORDERED: SODIUM CHLORIDE 500 ML IV STA (18:27)
[2016-12-12 18:33] VITALS: BMI 20.9
[2016-12-12 18:39] LABS: ABG PCO2 38.2 mmHg (35-45); ABG PH 7.323 (7.35-7.45)
[2016-12-12 18:40] LABS: ABG BASE EXCESS -6 (-2.0-2.0); ABG HCO3 19.8 (22.0-26.0); ABG TCO2 21 (22.0-28.0)
--- NOTE | 2016-12-12 18:47 | ED.PDOC ---
General <LULUGO LAST - Last Filed: 12/12/16 20:21> Stated Complaint: VOMITING , WEAKNESS Time Seen by Physician: 18:33 Mode of Arrival: Ambulance Information Source: Family Exam Limitations: No limitations Nursing and Triage Documentation Reviewed and Agree: Yes <KUMARSILVINA - Last Filed: 12/15/16 09:42> ED Provider: Dr. SILVINA HEATH Chief Complaint: Nausea/Vomiting Primary Care Provider: SARA PIEDRA Neurological Complaint Exam - Weakness Complaint/Exam Last Known Well: BROUGHT BY EMS FOR VOMITING WEAKNESS NO FOCAL WEAKNESS NOTED Onset: Gradual Duration: TODAY Symptoms Are: Resolved Episodes Lasting: Hours Initial Severity: Mild Current Severity: None Character: Reports: Weak Aggravating: Reports: None Alleviating: Reports: None Associated Signs and Symptoms: Reports: Nausea, Vomiting. Denies: Diaphoresis, Tinnitus, Chest pain, Short of air, Palpitations, Unsteady gait, GI blood loss, Visual changes, Decreased oral intake, Change in medication, Change in diet, OTC meds, Loss of balance Cardiac Risk Factors: Reports: Hypertension CVA Risk Factors: Reports: Hypertension Related Surgical History: Reports: None JVD Present: No Carotid Bruit Present: No Rectal Heme Positive: No Glascow Coma Scale (see protocol): 15 Nystagmus Present: No Gag Reflex Present: No Meningeal Signs Positive: No Focal Weakness: Present: None Focal Sensory Loss: Present: None Gait: Unable Differential Diagnoses: CAD, Dysrhythmia, Hypovolemia, Medication reaction, Metabolic abnormalities, Vasovagal reaction Quality Indicators for Cardiac Chest Pain: EKG in 10min. Quality Indicators for AMI: EKG in 10min. Quality Indicator For Non-Traumatic Chest Pain/Syncope: EKG Performed <KUMARSILVINA - Last Filed: 12/15/16 09:42> Review of Systems - Review Of Systems Constitutional: Reports: Weakness Eyes: Reports: No symptoms Ears, Nose, Mouth, Throat: Reports: No symptoms Respiratory: Reports: No symptoms Cardiac: Reports: No symptoms GI: Reports: Nausea, Vomiting : Reports: No symptoms Musculoskeletal: Reports: No symptoms Skin: Reports: No symptoms Neurological: Reports: No symptoms Endocrine: Reports: No symptoms Hematologic/Lymphatic: Reports: No symptoms All Other Systems: Reviewed and Negative <SILVINA HEATH - Last Filed: 12/15/16 09:42> Past Medical History - Past Medical History Endocrine: Reports: Hypothyroid Cardiovascular: Reports: Hypertension, A-Fib Respiratory: Reports: COPD, Asthma Hematological: Reports: None Gastrointestinal: Reports: None Genitourinary: Reports: None Neuro/Psych: Reports: Seizure, Anxiety, Depression Musculoskeletal: Reports: None 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 ) Last Menstrual Period: n/a - Surgical History General Surgical History: Reports: Hysterectomy, Tonsillectomy, Hernia Repair, Other ( BLADDER SURG DUE TO CA) - Family History Family History: Reports: Unknown - Social History Smoking Status: Former smoker Hx Substance Use: No Alcohol Screening: None - Immunizations Tetanus Shot up to Date: Yes <SILVINA HEATH - Last Filed: 12/15/16 09:42> Physical Exam - Physical Exam Appearance: Well-appearing, No pain distress, Well-nourished Eyes: AUBREY, EOMI, Conjunctiva clear ENT: Ears normal, Nose normal, Oropharynx normal Respiratory: Airway patent, Breath sounds clear, Breath sounds equal, Respirations nonlabored Cardiovascular: RRR, Pulses normal, No rub, No murmur GI/: Soft, Nontender, No masses, Bowel sounds normal, No Organomegaly Musculoskeletal: Normal strength, ROM intact, No edema, No calf tenderness Skin: Warm, Dry, Normal color Neurological: Sensation intact, Motor intact, Reflexes intact, Cranial nerves intact, Alert, Oriented Psychiatric: Affect appropriate, Mood appropriate <SILVINA HEATH - Last Filed: 12/15/16 09:42> Physician Notification - Case Discussed Physician Notified: dr piedra--states to send to [facility], [place](since she was just there0 Time of Notification: 20:22 <UGO ALLEN - Last Filed: 12/12/16 20:21> - Case Discussed Physician Notified: LUL Time of Notification: 19:00 <SILVINA HEATH - Last Filed: 12/15/16 09:42> Critical Care Note - Critical Care Note Total Time (mins): 0 <SILVINA HEATH - Last Filed: 12/15/16 09:42> Course - Course Hematology/Chemistry: 12/12/16 18:45 12/12/16 18:45 <UGO ALLEN - Last Filed: 12/12/16 20:21> - Course Hematology/Chemistry: 12/12/16 18:45 12/12/16 18:45 <SILVINA HEATH - Last Filed: 12/15/16 09:42> - Course Orders, Labs, Meds: Lab Review 12/12/16 12/12/16 12/12/16 18:26 18:45 19:35 WBC 11.59 H RBC 3.63 L Hgb 11.1 L Hct 33.7 L MCV 92.8 MCH 30.6 MCHC 32.9 RDW Coeff of Roberta 15.2 H Plt Count 404 Immature Gran % (Auto) 0.9 Neut % (Auto) 87.1 Lymph % (Auto) 5.6 L [place] % (Auto) 5.5 Eos % (Auto) 0.6 Baso % (Auto) 0.3 Immature Gran # (Auto) 0.1 Neut # 10.1 H Lymph # 0.7 [place] # 0.6 Eos # 0.1 Baso # 0.0 D-Dimer (Manual) 1585.51 Puncture Site Lr O2 Saturation 87.0 L ABG pH 7.323 L ABG pCO2 38.2 ABG pO2 56.0 L* ABG HCO3 19.8 L ABG Total CO2 21 L ABG Base Excess -6 L Mahamed Test + FiO2 % 21.0 Sodium 133 L Potassium 3.6 Chloride 100 Carbon Dioxide 20 L Anion Gap 16.6 BUN 58 H Creatinine 3.83 H* Estimated GFR (MDRD) 11.00 BUN/Creatinine Ratio 15.14 Glucose 107 Lactic Acid 4.3 L Calcium 9.1 Total Bilirubin 0.47 AST 25 ALT 30 Alkaline Phosphatase 103 Total Creatine Kinase 28 Troponin I 0.0360 B-Natriuretic Peptide 57 Total Protein 7.5 Albumin 3.2 L Globulin 4.3 Albumin/Globulin Ratio 0.74 Procalcitonin 0.3 Urine Color Yellow Urine Clarity Clear Urine pH 5.5 Ur Specific [place] 1.010 Urine Protein 2+ Urine Glucose (UA) Negative Urine Ketones Negative Urine Blood 2+ Urine Nitrite Negative Urine Bilirubin Negative Urine Urobilinogen 0.2 Ur Leukocyte Esterase 1+ Urine Microscopic RBC 5-10 Urine Microscopic WBC 30-50 Ur Squamous Epith Cells 2-5 Amorphous Sediment 2+ Urine Bacteria 2+ Fine Granular Casts 2-5 Ur Oval Fat Bodies Few Orders Category Date Time Status ABG DRAW REQUEST Stat CARDIO 12/12/16 18:26 Completed EKG-(ED ONLY) Stat CARDIO 12/12/16 18:28 Completed TRANSFER TO OUTSIDE FACILITY .TO [facility] 12/12/16 20:23 [facility] [place] WR[facility]SF[facility]/SBAR NOTE ONCE CARE 12/12/16 20:23 Active DISCHARGE ASSESSMENT ONCE DISCHARGE 12/12/16 20:23 Active WRITE DISCHARGE NOTE ONCE DISCHARGE 12/12/16 20:23 Active ED IV/MEDIPORT/POWERPORT .ONCE EMERGENCY 12/12/16 18:27 Active Scanlon [ED CATHETER INSERTION AND CARE] .ONCE EMERGENCY 12/12/16 18:58 Inactive ABG Stat LAB 12/12/16 18:26 Completed B-TYPE NATRIURETIC PEPTIDE Stat LAB 12/12/16 18:45 Completed BLOOD CULTURE Stat LAB 12/12/16 18:45 Results CBC W/ AUTO DIFF Stat LAB 12/12/16 18:45 Completed COMPREHENSIVE METABOLIC PANEL Stat LAB 12/12/16 18:45 Completed CREATINE KINASE Stat LAB 12/12/16 18:45 Completed D-DIMER Stat LAB 12/12/16 18:45 Completed LACTIC ACID Stat LAB 12/12/16 18:45 Completed PROCALCITONIN Stat LAB 12/12/16 18:45 Completed TROPONIN I Stat LAB 12/12/16 18:45 Completed URINALYSIS C & S IF INDICATED Stat LAB 12/12/16 19:35 Completed URINE CULTURE Stat LAB 12/12/16 19:35 Completed 0.9 % Sodium Chloride [Saline Flush] MEDS 12/12/16 18:27 Discontinued 1 syr IVF PRN PRN Lidocaine HCl [Uro-Jet] MEDS 12/12/16 18:58 Discontinued 10 ml MUCOUSMEMB ONCE STA Sodium Chloride 0.9% [Sodium Chloride] 1,000 ml MEDS 12/12/16 21:10 Discontinued IV 100 mls/hr Sodium Chloride 0.9% [Sodium Chloride] 500 ml MEDS 12/12/16 18:[address] ABDOMEN/PELVIS WO CONTRAST Stat RADS 12/12/16 18:[address] CHEST W/O CONTRAST Stat RADS 12/12/16 18:54 Completed Medications Discontinued Medications Generic Name Dose Route Start Last Admin Trade Name Freq PRN Reason Stop Dose Admin Sodium Chloride 500 mls @ 500 mls/hr 12/12/16 18:27 12/12/16 19:05 Sodium Chloride IV 12/12/16 19:26 500 mls/hr BOLUS STA Administration Sodium Chloride 1,000 mls @ 100 mls/hr 12/12/16 21:10 12/12/16 21:10 Sodium Chloride IV 12/13/16 07:09 100 mls/hr .Q10H STA Administration Lidocaine HCl 10 ml 12/12/16 18:58 12/12/16 19:48 Uro-Jet MUCOUSMEMB 12/12/16 18:59 Not Given ONCE STA Sodium Chloride 1 syr 12/12/16 18:27 Saline Flush IVF PRN PRN To flush IV Vital Signs: Temp Pulse Resp BP Pulse Ox 12/12/16 20:55 99.6 F 89 18 106/65 98 12/12/16 18:24 99 F 110 H 18 132/65 89 L Departure - Departure Time of Disposition: 20:22 Transfer Form Completed: Yes Disposition Discussed With: Family <UGO ALLEN - Last Filed: 12/12/16 20:21> - Departure Pt referred to PMD for follow-up: No Disposition Discussed With: Patient <KUMARSILVINA - Last Filed: 12/15/16 09:42> - Departure Disposition: [facility]-TRM [facility]OSP Discharge Problem: Nausea, Vomiting, UTI (urinary tract infection), JACKELINE (acute kidney injury) Condition: Good Additional Instructions: Please call your Family Physician as soon as possible to schedule a follow-up appointment. Allergies/Adverse Reactions: Allergies Iodinated Contrast Media - Oral and [Iodinated Contrast Media - IV Dye] Adverse Reaction (Verified 12/12/16 18:36) Hives Tetracyclines Adverse Reaction (Verified 12/12/16 18:36) Difficulty Swallowing DIFF SWALLOWING AND HIVES Home Medications: Ambulatory Orders Ranitidine HCl [Zantac] 150 mg PO BEDTIME 06/03/16 Alprazolam [Xanax] 0.5 mg PO QPM 11/19/16 Acetaminophen 325 mg PO Q4HR 12/12/16 Dexamethasone 4 mg/ml Inj [Decadron 4 mg/ml Sdv] 4 mg IM PRN PRN 12/12/16 Loperamide HCl [Loperamide] 2 mg PO Q4HR 12/12/16
[2016-12-12 18:58] LABS: BASOPHILS % (AUTO) 0.3 % (0.0-3.0); EOSINOPHILS # (AUTO) 0.1 K/ul (0.0-0.7); EOSINOPHILS % (AUTO) 0.6 % (0.0-7.0); HEMATOCRIT 33.7 % (37.0-47.0); HEMOGLOBIN 11.1 g/dl (12.0-16.0); IMMATURE GRANULOCYTE % (AUTO) 0.9 % (0.0-5.0); LYMPHOCYTES # (AUTO) 0.7 K/uL (0.60-3.4); LYMPHOCYTES % (AUTO) 5.6 (10.0-50.0); MEAN CORPUSCULAR HEMOGLOBIN 30.6 pg (27.0-31.0); MEAN CORPUSCULAR HGB CONC 32.9 (31.8-35.4); MEAN CORPUSCULAR VOLUME 92.8 fl (81.0-99.0); MONOCYTES # (AUTO) 0.6 K/uL (0.4-2.0); MONOCYTES % (AUTO) 5.5 (0-10); NEUTROPHILS # (AUTO) 10.1 K/ul (2.0-6.9); NEUTROPHILS % (AUTO) 87.1; PLATELET COUNT 404 10^3/uL (140-440); RED BLOOD COUNT 3.63 10^6/ul (4.20-5.40); WHITE BLOOD COUNT 11.59 K/ul (4.6-10.2)
[2016-12-12] MEDS ORDERED: URO-JET MUCOUSMEMB STA (18:58)
[2016-12-12 19:25] LABS: ALBUMIN 3.2 g/dL (3.4-5.0); ALBUMIN/GLOBULIN RATIO 0.74; ANION GAP 16.6; BILIRUBIN,TOTAL 0.47 mg/dL (0.00-1.20); BUN/CREATININE RATIO 15.14; CALCIUM 9.1 mg/dL (8.2-10.2); POTASSIUM 3.6 mmol/L (3.5-5.10); TOTAL PROTEIN 7.5 g/dL (5.8-8.1); TROPONIN I 0.036 ng/ml (0.0000-0.4000)
[2016-12-12 19:28] LABS: CREATININE 3.83 mg/dL (0.60-1.30)
--- NOTE | 2016-12-12 19:58 | CT ---
EXAM: CT chest without contrast HISTORY: Nausea and vomiting COMPARISON: CT abdomen pelvis same day and 11/23/2016 TECHNIQUE: Serial axial images of the chest were obtained from the lung apices to the upper abdomen without contrast. These were viewed in multiple planes. FINDINGS: The thyroid is normal. Visualized vessels demonstrate mild atherosclerotic disease. The pulmonary arteries are mildly enlarged. The heart is upper limit of normal with trace pericardial fluid. There are calcified mediastinal and hilar lymph nodes. Small hiatal hernia is present. There is no pneumothorax or pleural effusion. There is a calcified granuloma in the anterior right upper lobe. Additional calcified granuloma in the right upper lobe is present. There is mild bibas ilar atelectasis versus fibrosis. No acute consolidation, nodule or mass is present. The airways a re patent bilaterally. Soft tissues in the upper abdomen are better visualized on same day CT abdomen pelvis with an enlarg ed left renal collecting system. Posterior right nephrostomy tube is present. IMPRESSION: 1. No acute cardiopulmonary process, nodule or mass. 2. Small hiatal hernia. 3. Scattered atherosclerotic disease with mildly enlarged pulmonary arteries suggestive of arterial hypertension. 4. Sequela of old granulomatous disease and minimal bibasilar fibrosis/atelectasis. 5. Soft tissues in the upper abdomen are better visualized on same day CT abdomen pelvis.
[2016-12-12 19:59] LABS: BILIRUBIN,URINE Negative (NEGATIVE); KETONES,URINE Negative (NEGATIVE); LEUKOCYTE ESTERASE ,URINE 1+ (NEGATIVE); NITRITE,URINE Negative (NEGATIVE); PH,URINE 5.5 (5-9); PROTEIN,URINE 2+ (NEGATIVE); URINE, BLOOD 2+ (NEGATIVE)
[2016-12-12 20:09] LABS: ADD URINE MICROSCOPIC YES
[2016-12-12 20:11] LABS: BACTERIA,URINE 2+ (NOT PRESENT)
--- NOTE | 2016-12-12 20:13 | CT ---
EXAM: CT abdomen pelvis without contrast HISTORY: Nausea and vomiting COMPARISON: CT abdomen pelvis 11/23/2016 and 11/19/2016 TECHNIQUE: Serial axial images of the abdomen pelvis were performed from the lung bases through the inferior pelvis without contrast. These were viewed in multiple planes. FINDINGS: The lung bases demonstrate minimal bibasilar atelectasis and a small hiatal hernia. Evaluation of the abdomen pelvis is limited due to lack of contrast. There is been interval placeme nt of a posterior right nephrostomy tube with decompression of the previously identified right hydro nephrosis and hydroureter. Adjacent to the right kidney posteriorly is a minimal area of increased attenuation which may represent a subtle hemorrhage from insertion. The left kidney redemonstrates hydronephrosis and hydroureter with a left ureteral stent in place and coursing along the left urete r and coiled in a partially distended urinary bladder. The liver is unchanged with scattered calcific granulomas. The gallbladder has been removed. The r ight adrenal gland demonstrates a low attenuation nodule measuring 1.1 cm in diameter with Hounsfiel d units suggestive of an adenoma. Left adrenal gland is unremarkable. The spleen demonstrates calc ified granulomas. The pancreas is unremarkable. The stomach. There is unremarkable in appearance with minimal internal debris. The small bowel in the abdomen pelvis demonstrates multiple fluid-mariel led loops of small bowel which measure up to the upper limit of normal for size. The terminal ileum is not distended. There is no focal transition point within the pelvis. The colon demonstrates few sigmoid diverticuli. There is mild amount of fluid throughout the colon. There is no CT evidence of obstruction. There is no free air, free fluid or lymphadenopathy. The re is moderate atherosclerotic disease, unchanged from prior exam. Osseous structures demonstrate l eftward scoliosis and unchanged degenerative disease with compression deformity at T12. IMPRESSION: 1. Posterior right nephrostomy tube with decompression of the hydronephrosis and hydroureter with p robable small adjacent perirenal hematoma. 2. Persistent left hydronephrosis with a left ureteral stent in place. Gas within the left ureter h as resolved. 3. Scattered fluid-filled loops of small bowel throughout the abdomen pelvis. No focal transition point with the distal terminal ileum being nondistended. There is fluid throughout the colon as wel l. Findings are suggestive of enteritis. Early/partial obstruction is considered less likely. 4. Small sliding hiatal hernia. 5. Atherosclerotic disease and unchanged osseous findings as above.
[2016-12-12 21:10] VITALS: BP 106/65; TEMP 99.6
[2016-12-12] MEDS ORDERED: SODIUM CHLORIDE 1,000 ML IV STA (21:10)
== END 2016-12-12 21:35 | disposition short-term general hospital (02) ==
LOC: ED 18:23
DX: N39.0 Urinary tract infection, site not specified (principal); R11.2 Nausea with vomiting, unspecified; N17.9 Acute kidney failure, unspecified; R53.1 Weakness; I10 Essential (primary) hypertension; E03.9 Hypothyroidism, unspecified; Z79.899 Other long term (current) drug therapy
CPT/HCPCS: 36415; 80053; 81001; 82550; 82803; 83605; 83880; 84145; 84484; 85025; 85379; 87040; 87086; 87186; 93005; 93010; 96360; 99285

== ENCOUNTER 2017-07-05 15:38 | Outpatient (CLI) ==
[2017-07-05 16:17] LABS: BASOPHILS % (AUTO) 0.4 % (0.0-3.0); EOSINOPHILS # (AUTO) 0.4 K/ul (0.0-0.7); EOSINOPHILS % (AUTO) 4.8 % (0.0-7.0); HEMATOCRIT 28.7 % (37.0-47.0); HEMOGLOBIN 9.1 g/dl (12.0-16.0); IMMATURE GRANULOCYTE % (AUTO) 0.5 % (0.0-5.0); LYMPHOCYTES # (AUTO) 1.8 K/uL (0.60-3.4); LYMPHOCYTES % (AUTO) 21.5 (10.0-50.0); MEAN CORPUSCULAR HEMOGLOBIN 30.5 pg (27.0-31.0); MEAN CORPUSCULAR HGB CONC 31.7 (31.8-35.4); MEAN CORPUSCULAR VOLUME 96.3 fl (81.0-99.0); MONOCYTES # (AUTO) 0.9 K/uL (0.4-2.0); MONOCYTES % (AUTO) 9.9 (0-10); NEUTROPHILS # (AUTO) 5.4 K/ul (2.0-6.9); NEUTROPHILS % (AUTO) 62.9; PLATELET COUNT 187 10^3/uL (140-440); RED BLOOD COUNT 2.98 10^6/ul (4.20-5.40); WHITE BLOOD COUNT 8.56 K/ul (4.6-10.2)
[2017-07-05 16:36] LABS: ALBUMIN/GLOBULIN RATIO 0.79; ANION GAP 16.3; BILIRUBIN,TOTAL 0.44 mg/dL (0.00-1.20); BUN/CREATININE RATIO 2.98; CALCIUM 9.5 mg/dL (8.2-10.2); CREATININE 1.34 mg/dL (0.60-1.30); POTASSIUM 3.3 mmol/L (3.5-5.10); TOTAL PROTEIN 6.8 g/dL (5.8-8.1)
== END 2017-07-05 15:39 | disposition home or self-care (01) ==
LOC: LAB 15:38
PROVIDERS: ATTEND Nurse Practitioner Family
DX: N18.5 Chronic kidney disease, stage 5 (principal)
CPT/HCPCS: 80053; 85025

== ENCOUNTER 2017-07-07 15:04 | Outpatient (CLI) ==
[2017-07-07 15:17] LABS: BILIRUBIN,URINE Negative (NEGATIVE); KETONES,URINE Negative (NEGATIVE); LEUKOCYTE ESTERASE ,URINE 3+ (NEGATIVE); NITRITE,URINE Negative (NEGATIVE); PH,URINE 8.5 (5-9); PROTEIN,URINE 3+ (NEGATIVE); URINE, BLOOD 2+ (NEGATIVE)
[2017-07-07 15:18] LABS: ADD URINE MICROSCOPIC YES
[2017-07-07 15:30] LABS: BACTERIA,URINE 4+ (NOT PRESENT)
[2017-07-08 13:12] LABS: URINE CREATININE <4.2 mg/dL (Not Estab.); URINE TOTAL PROTEIN 194.7 mg/dL (Not Estab.)
== END 2017-07-07 15:05 | disposition home or self-care (01) ==
LOC: LAB 15:04
PROVIDERS: ATTEND Internal Medicine
DX: N18.5 Chronic kidney disease, stage 5 (principal)
CPT/HCPCS: 36415; 81001; 82570; 84156; 87086

== ENCOUNTER 2017-07-09 15:11 | Outpatient (CLI) ==
--- NOTE | 2017-07-09 15:43 | DI ---
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 There are benign postinflammat ory calcifications. Left basilar interstitial prominence likely due to atelectasis There is no pulmonary consolidation, effusion or pneumothorax. Compression fracture of the T12 and L1 levels appears grossly stable.
== END 2017-07-09 15:12 | disposition home or self-care (01) ==
LOC: RAD 15:11
PROVIDERS: ATTEND Nurse Practitioner Family
DX: R76.11 Nonspecific reaction to tuberculin skin test without active tuberculosis (principal)

== ENCOUNTER 2018-05-06 08:43 | Emergency (ER) | payer OTHER ==
[2018-05-06 09:00] VITALS: BP 153/77; TEMP 98.5; BMI 27.6
--- NOTE | 2018-05-06 10:05 | CT ---
EXAM: CT of the abdomen pelvis without contrast History: Abdominal pain, nausea vomiting. History of appendectomy. Comparison: CT abdomen pelvis 02/11/2017 Technique: Multiplanar CT images through the abdomen pelvis were obtained without the administration of IV contrast Findings: There is a new 1.8 cm spiculated nodule in the right lower lobe. There is right middle lob e atelectasis. There is bibasilar subsegmental atelectasis. The visualized osseous structures unchan ged. Stable chronic compression deformities within the lower thoracic and upper lumbar spine. Calcified granulomas are seen within the liver and spleen. Atherosclerotic vascular calcifications. N o peripancreatic inflammation. Stable benign right adrenal adenoma. Left adrenal gland is unremarkab le. Fat and fluid containing right inguinal hernia. No bowel obstruction. Scattered colonic stool. Nondilated fluid filled loops of small bowel. There is fluid seen within the colon. Sigmoid colonic diverticulosis. There is moderate to severe right hydronephrosis and there is wall thickening of the right ureter which extends all the way down to the insertion with the bladder. Posterior to the rig ht kidney there is a 2.7 cm x 3.2 cm area of soft tissue. There is mild to moderate left hydronephro sis and hydroureter. The bladder is not well distended but the wall is irregular thickened. Small f ocus of air is seen within the bladder lumen. No perirectal inflammation. There is a new 2.1 cm x 1. 1 cm right retroperitoneal lymph node. No free air and no ascites. Small hiatal hernia Impression: 1. 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 2. Mild to moderate left hydronephrosis and hydroureter. 3. New metastatic retroperitoneal lymphadenopathy. 4. Area of soft tissue posterior to the right kidney could represent scar tissue from previous nephr ostomy tube versus metastatic deposit. 5. Irregular bladder wall thickening consistent with tumor involvement. 6. New metastatic right lung base nodule. 7. Colonic diverticulosis.
--- NOTE | 2018-05-06 10:06 | ED.PDOC ---
General ED Provider: Dr. SILVINA HEATH Chief Complaint: Nausea/Vomiting Stated Complaint: nauseated Time Seen by Physician: 09:00 (seen with Millie AT ALL TIMES ) Information Source: Patient Exam Limitations: No limitations Primary Care Provider: SARA DAILY Referred to ED by: Other (IS DUE ) Nursing and Triage Documentation Reviewed and Agree: Yes Does patient meet sepsis criteria?: No If yes, has appropriate treatment been initiated?: No System Inflammatory Response Syndrome: Not Applicable Sepsis Protocol: For patient's 13 years and over: Temp is 96.8 and below OR 101 and greater Pulse >90 BPM Resp >20/minute Acutely Altered Mental Status Are patient's symptoms suggestive of a new infection, such as: -Pneumonia -Skin, Soft Tissue -Endocarditis -UTI -Bone, Joint Infection -Implantable Device -Acute Abdominal Infection -Wound Infection -Meningitis -Blood Stream Catheter Infection -Unknown GI Complaint Exam - Vomiting/Diarrhea Complaint/Exam Onset/Duration: 1 DAY Symptoms Are: Still present Episodes of Vomiting over last 24 Hours: 0 Episodes of Diarrhea Over Last 24 Hours: 0 Current Severity: None Aggravating: Reports: None Alleviating: Reports: None Associated Signs and Symptoms: Reports: Abdominal pain, Cramping. Denies: Dizziness, Light-headedness, Melena, Hematemesis, Fever Related History: Reports: Similar episode Related Surgical History: Reports: None Abdominal Findings: Present: None Kussmaul Respirations Present: No Review of Systems - Review Of Systems Constitutional: Reports: No symptoms Eyes: Reports: No symptoms Ears, Nose, Mouth, Throat: Reports: No symptoms Respiratory: Reports: No symptoms Cardiac: Reports: No symptoms GI: Reports: Abdominal pain, Nausea : Reports: No symptoms Musculoskeletal: Reports: No symptoms Skin: Reports: No symptoms Neurological: Reports: No symptoms Endocrine: Reports: No symptoms Hematologic/Lymphatic: Reports: No symptoms All Other Systems: Reviewed and Negative Past Medical History - Past Medical History Previously Healthy: Yes Endocrine: Reports: Hypothyroid Cardiovascular: Reports: Hypertension, A-Fib Respiratory: Reports: COPD, Asthma Hematological: Reports: None Gastrointestinal: Reports: None Genitourinary: Reports: None Neuro/Psych: Reports: Seizure, Anxiety, Depression Musculoskeletal: Reports: None 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 ) Last Menstrual Period: n/a - Surgical History General Surgical History: Reports: Hysterectomy, Tonsillectomy, Hernia Repair, Other ( BLADDER SURG DUE TO CA) - Family History Family History: Reports: Unknown - Social History Smoking Status: Former smoker Hx Substance Use: No Alcohol Screening: None - Immunizations Tetanus Shot up to Date: Yes Physical Exam - Physical Exam Appearance: Well-appearing, No pain distress, Well-nourished Eyes: AUBREY, EOMI, Conjunctiva clear ENT: Ears normal, Nose normal, Oropharynx normal Respiratory: Airway patent, Breath sounds clear, Breath sounds equal, Respirations nonlabored Cardiovascular: RRR, Pulses normal, No rub, No murmur GI/: Soft, Nontender, No masses, Bowel sounds normal, No Organomegaly Musculoskeletal: Normal strength, ROM intact, No edema, No calf tenderness Skin: Warm, Dry, Normal color Neurological: Sensation intact, Motor intact, Reflexes intact, Cranial nerves intact, Alert, Oriented Psychiatric: Affect appropriate, Mood appropriate Interpretation - Radiology Interpretation Exam Interpreted: CT Scan (HYDRONEPHROSIS MESENTRIC ADENOPATHY NEW BLADDER WALL THICK POSSIBLE TUMOR , NEW LUNG METS ) - [employer] Rate: Normal (WITH PAC) Rhythm: Sinus - EKG Interpretation Rate: Normal Rhythm: Other (PAC NO ACUTE CHANGES NOTED) Ectopy: PACs (UNIFOCAL) [place]: NL ST Segment: Normal Physician Notification - Case Discussed Physician Notified: PMD Time of Notification: 10:07 (MAY HAVE DIALYSIS NOW ) Critical Care Note - Critical Care Note Total Time (mins): 0 Course - Course Hematology/Chemistry: 05/06/18 08:53 05/06/18 08:53 Orders, Labs, Meds: Lab Review 05/06/18 05/06/18 05/06/18 08:53 08:53 09:18 WBC 15.63 H RBC 3.01 L Hgb 9.5 L Hct 30.3 L MCV 100.7 H MCH 31.6 H MCHC 31.4 L RDW Coeff of Roberta 15.5 H Plt Count 311 Immature Gran % (Auto) 1.0 Neut % (Auto) 83.1 Lymph % (Auto) 8.1 L Wilkes % (Auto) 6.0 Eos % (Auto) 1.3 Baso % (Auto) 0.5 Immature Gran # (Auto) 0.2 Neut # (Auto) 13.0 H Lymph # (Auto) 1.3 Wilkes # (Auto) 0.9 Eos # (Auto) 0.2 Baso # (Auto) 0.1 Puncture Site Lbrach O2 Saturation 96.0 ABG pH 7.493 H ABG pCO2 34.9 L ABG pO2 76.0 L ABG HCO3 26.8 H ABG Total CO2 28 ABG Base Excess 4 H FiO2 % 21.0 Sodium 133 L Potassium 5.3 H Chloride 101 Carbon Dioxide 24 Anion Gap 13.3 BUN 27 H Creatinine 4.70 H* Estimated GFR (MDRD) 9.00 BUN/Creatinine Ratio 5.74 Glucose 108 Calcium 9.2 Total Bilirubin 0.3 AST 15 ALT 12 Alkaline Phosphatase 95 Total Creatine Kinase 20 Troponin I 0.0910 Total Protein 7.7 Albumin 2.3 L Globulin 5.4 Albumin/Globulin Ratio 0.43 Orders Category Date Time Status ABG DRAW REQUEST Stat CARDIO 05/06/18 09:18 Completed EKG-(ED ONLY) Stat CARDIO 05/06/18 09:06 Completed ABG Stat LAB 05/06/18 09:18 Completed CBC W/ AUTO DIFF Stat LAB 05/06/18 08:53 Completed COMPREHENSIVE METABOLIC PANEL Stat LAB 05/06/18 08:53 Completed CREATINE KINASE Stat LAB 05/06/18 08:53 Completed TROPONIN I Stat LAB 05/06/18 08:[address] ABDOMEN/PELVIS WO CONTRAST Stat RADS 05/06/18 09:06 Ordered Vital Signs: Temp Pulse Resp BP Pulse Ox 05/06/18 08:53 98.5 F 83 20 153/77 H 97 Departure - Departure Time of Disposition: 10:08 Disposition: HOME SELF-CARE Discharge Problem: Nausea, Hyperkalemia Renal failure Qualifiers: Renal failure chronicity: chronic Chronic kidney disease stage: unspecified stage Qualified Code(s): N18.9 - Chronic kidney disease, unspecified Anemia Qualifiers: Anemia type: unspecified type Qualified Code(s): D64.9 - Anemia, unspecified Instructions: Chronic Kidney Disease Diet (DC) Condition: Good Pt referred to PMD for follow-up: Yes IPMP verified?: No Additional Instructions: Please call your Family Physician as soon as possible to schedule a follow-up appointment.THERE 2 NEW CANCER SPOTS IN THE PT'S ABDOMEN AND IN THE RIGHT LUNG PLEASE SEE YOUR MD MIKAELA Allergies/Adverse Reactions: Allergies Iodinated Contrast- Oral and IV Dye [Iodinated Contrast Media - IV Dye] Adverse Reaction (Verified 05/06/18 08:46) Hives Tetracyclines Adverse Reaction (Verified 05/06/18 08:46) Difficulty Swallowing DIFF SWALLOWING AND HIVES Home Medications: Ambulatory Orders Ranitidine HCl [Zantac] 150 mg PO BEDTIME 06/03/16 Alprazolam [Xanax] 0.5 mg PO QPM 11/19/16 Acetaminophen 325 mg PO Q4HR 12/12/16 Albuterol Sulfate [Proair Hfa] 1 puff INH BEDTIME 05/06/18 Docusate Sodium [Colace] 100 mg PO DAILY 05/06/18 Escitalopram Oxalate [Lexapro] 20 mg PO BID 05/06/18 Fluticasone/Salmeterol 100/50 [Advair 100-50 Diskus] 1 puff IH BID 05/06/18 Fluvastatin Sodium [Lescol Xl] 80 mg PO DAILY 05/06/18 Levothyroxine Sodium [Synthroid] 50 mcg PO QDAC 05/06/18 Ondansetron HCl [Zofran] 4 mg PO Q4-6H PRN 05/06/18 Disposition Discussed With: Patient, Family (SPOKE TO THE FAMILY NEW METS AND RETROPERITONEAL ADENOPATHY WHICH IS NEW DISCUSSED )
== END 2018-05-06 10:29 | disposition home or self-care (01) ==
LOC: ED 08:43
DX: R11.2 Nausea with vomiting, unspecified (principal); E87.5 Hyperkalemia; N18.9 Chronic kidney disease, unspecified; D63.1 Anemia in chronic kidney disease; R10.9 Unspecified abdominal pain; C67.9 Malignant neoplasm of bladder, unspecified; R93.5 Abnormal findings on diagnostic imaging of other abdominal regions, including retroperitoneum; R91.8 Other nonspecific abnormal finding of lung field; I10 Essential (primary) hypertension; E03.9 Hypothyroidism, unspecified; Z79.899 Other long term (current) drug therapy; Z99.2 Dependence on renal dialysis
CPT/HCPCS: 36415; 80053; 82550; 82803; 84484; 85025; 93005; 93010; 99283

== ENCOUNTER 2018-10-12 16:58 | Inpatient (IN) ==
[2018-10-12] MEDS ORDERED: DUONEB NEB STA (17:12)
--- NOTE | 2018-10-12 17:43 | CT ---
EXAM: CT chest without contrast HISTORY: Cough COMPARISON: CT chest 08/13/2018 and multiple priors TECHNIQUE: Serial axial images of the chest were obtained from the lung apices to the upper abdomen without contrast. These were viewed in multiple planes. FINDINGS: The thyroid is normal. The visualized vessels demonstrate moderate atherosclerotic diseas e of the aorta without stenosis. There is a right central line with the tip at the cavoatrial juncti on. The heart is normal in size without pericardial effusion. There are no pathologically enlarged mediastinal or hilar lymph nodes. There are calcified and partially calcified mediastinal and hilar lymph nodes. There is a moderate hiatal hernia. There is no pneumothorax or effusion. The mass in the right inferior aspect of the right upper lobe measures 4.8 x 3.6 cm in comparison to 4.1 x 3.1 cm on prior. There is minimal atelectasis in the ri ght middle lobe. Hazy ground-glass nodule noted in the central aspect of the right upper lobe on carlos ge 18 which is new measuring 0.5 cm. The mass in the right lower lobe on image 4.6 measures 2.3 x 2. 2 cm in comparison to 2.0 cm on prior. There is no additional mass. The central airways are patent. The soft tissues in the upper abdomen on this very limited evaluation demonstrates calcified granulom as of the spleen and liver. There is bilateral renal atrophy and enlarged collecting systems which a re incompletely evaluated. Soft tissues in the upper abdomen are unremarkable. There is severe athe rosclerotic disease. The the osseous structures of the demonstrate multilevel degenerative disease a nd compression fracture at T12. There is no lytic or blastic lesion. There is thickening of the righ t posterior pleural on image 51 measuring 2 cm in thickness in comparison to 2.9 cm on prior. IMPRESSION: 1. The right upper lobe mass has mildly increased in measured size. 2. The right lower lobe mass measures minimally increased in comparison to prior exam. 3. New right upper lobe ground-glass nodule may be postinflammatory. Attention on follow-up is kiana mmended. 4. Central low attenuation pleural mass in the right upper quadrant measures 2 cm in thickness in co mparison to 2.9 cm and is nonspecific. 5. Bilateral hydronephrosis with sequela of old granulomatous disease. 6. Unchanged hiatal hernia. 7. Degenerative disease and stable compression fracture at T12.
--- NOTE | 2018-10-12 18:33 | ED.PDOC ---
General ED Provider: Dr. SILVINA HEATH Chief Complaint: Respiratory Complaint Stated Complaint: cough, flu like symptoms Time Seen by Physician: 17:00 Mode of Arrival: Walk-In Information Source: Patient Exam Limitations: No limitations Primary Care Provider: UGO MCCARTY Nursing and Triage Documentation Reviewed and Agree: Yes Does patient meet sepsis criteria?: No If yes, has appropriate treatment been initiated?: No System Inflammatory Response Syndrome: Not Applicable Sepsis Protocol: For patient's 13 years and over: Temp is 96.8 and below OR 101 and greater Pulse >90 BPM Resp >20/minute Acutely Altered Mental Status Are patient's symptoms suggestive of a new infection, such as: -Pneumonia -Skin, Soft Tissue -Endocarditis -UTI -Bone, Joint Infection -Implantable Device -Acute Abdominal Infection -Wound Infection -Meningitis -Blood Stream Catheter Infection -Unknown Respiratory Complaint Exam - Respiratory Complaint/Exam Onset/Duration: today Symptoms Are: Resolved Timing: Intermittent Initial Severity: Mild Current Severity: Mild Location: Nose, Throat, Chest Character: Reports: Non-productive cough, Dry cough Aggravating: Reports: URI Alleviating: Reports: Spontaneous resolution Associated Signs and Symptoms: Reports: URI, Nasal congestion. Denies: Rapid breathing, Dyspnea, Fever, Chills, Chest pain, Pleuritic chest pain, Wheezing, Hemoptysis, Dizziness, Calf pain, Calf swelling, Edema, Hoarseness, Sinus discomfort, Vomiting, Sore throat, Weight loss, Decreased oral intake, Increased thirst, Increased appetite, Increased urination Related History: Reports: Similar episode Review of Systems - Review Of Systems Constitutional: Reports: Chills, Malaise Eyes: Reports: No symptoms Ears, Nose, Mouth, Throat: Reports: No symptoms Respiratory: Reports: Cough Cardiac: Reports: No symptoms GI: Reports: No symptoms : Reports: No symptoms Musculoskeletal: Reports: No symptoms Skin: Reports: No symptoms Neurological: Reports: No symptoms Endocrine: Reports: No symptoms Hematologic/Lymphatic: Reports: No symptoms All Other Systems: Reviewed and Negative Past Medical History - Past Medical History Previously Healthy: Yes Endocrine: Reports: Hypothyroid Cardiovascular: Reports: Hypertension, A-Fib Respiratory: Reports: COPD, Asthma Hematological: Reports: None Gastrointestinal: Reports: None Genitourinary: Reports: None Neuro/Psych: Reports: Seizure, Anxiety, Depression Musculoskeletal: Reports: None 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 ) Last Menstrual Period: n/a - Surgical History General Surgical History: Reports: Hysterectomy, Tonsillectomy, Hernia Repair, Other ( BLADDER SURG DUE TO CA) - Family History Family History: Reports: Unknown - Social History Smoking Status: Former smoker Hx Substance Use: No Alcohol Screening: None Physical Exam - Physical Exam Appearance: Ill-appearing Ill-appearing: Mild Pain Distress: Mild Eyes: AUBREY, EOMI, Conjunctiva clear ENT: Ears normal, Nose normal, Oropharynx normal Respiratory: Breath sounds diminished, Rhonchi Cardiovascular: RRR, Pulses normal, No rub, No murmur GI/: Soft, Nontender, No masses, Bowel sounds normal, No Organomegaly Musculoskeletal: Normal strength, ROM intact, No edema, No calf tenderness Skin: Warm, Dry, Normal color Neurological: Sensation intact, Motor intact, Reflexes intact, Cranial nerves intact, Alert, Oriented Psychiatric: Affect appropriate, Mood appropriate Interpretation - Radiology Interpretation Radiology Interpretation By: Radiologist Radiology Results: Positive (LUNG MASS) - Offset Printer Rate: Normal Rhythm: Sinus (WITH PAC) Re-Evaluation - Re-Evaluation Time of Re-Evaluation: 18:38 Status: Improved Vital Signs Stable: Yes Pain Level: 0 Appearance: NAD Lungs: Clear Skin: Warm and Dry Neuro: Alert and Oriented X3 CV: RRR Physician Notification - Case Discussed Physician Notified: PMD Time of Notification: 18:42 Admit To: Inpatient Critical Care Note - Critical Care Note Total Time (mins): 0 Course - Course Hematology/Chemistry: 10/12/18 17:20 10/12/18 17:20 Orders, Labs, Meds: Lab Review 10/12/18 10/12/18 10/12/18 17:11 17:20 17:20 WBC 6.44 RBC 3.77 L Hgb 11.2 L Hct 37.0 MCV 98.1 MCH 29.7 MCHC 30.3 L RDW Coeff of Roberta 17.6 H Plt Count 228 Immature Gran % (Auto) 0.6 Neut % (Auto) 65.0 Lymph % (Auto) 19.1 Oliver % (Auto) 10.1 H Eos % (Auto) 4.3 Baso % (Auto) 0.9 Immature Gran # (Auto) 0.0 Neut # (Auto) 4.2 Lymph # (Auto) 1.2 Oliver # (Auto) 0.7 Eos # (Auto) 0.3 Baso # (Auto) 0.1 Puncture Site Lbrach O2 Saturation 93.0 L ABG pH 7.395 ABG pCO2 39.6 ABG pO2 67.0 L ABG HCO3 24.3 ABG Total CO2 25 ABG Base Excess -1 FiO2 % 21.0 Sodium 136.4 Potassium 4.80 Chloride 96.9 L Carbon Dioxide 27.7 Anion Gap 16.60 BUN 38.5 H Creatinine 6.40 H* Estimated GFR (MDRD) 6.00 BUN/Creatinine Ratio 6.01 Glucose 98.9 Calcium 8.92 Total Bilirubin 0.35 AST 19.8 ALT 9.6 Alkaline Phosphatase 72.5 Total Protein 7.13 Albumin 3.38 L Globulin 3.75 Albumin/Globulin Ratio 0.90 Influ A Molecular Assay Influ B Molecular Assay 10/12/18 17:23 WBC RBC Hgb Hct MCV MCH MCHC RDW Coeff of Roberta Plt Count Immature Gran % (Auto) Neut % (Auto) Lymph % (Auto) Oliver % (Auto) Eos % (Auto) Baso % (Auto) Immature Gran # (Auto) Neut # (Auto) Lymph # (Auto) Oliver # (Auto) Eos # (Auto) Baso # (Auto) Puncture Site O2 Saturation ABG pH ABG pCO2 ABG pO2 ABG HCO3 ABG Total CO2 ABG Base Excess FiO2 % Sodium Potassium Chloride Carbon Dioxide Anion Gap BUN Creatinine Estimated GFR (MDRD) BUN/Creatinine Ratio Glucose Calcium Total Bilirubin AST ALT Alkaline Phosphatase Total Protein Albumin Globulin Albumin/Globulin Ratio Influ A Molecular Assay Negative by naat Influ B Molecular Assay Negative by naat Orders Category Date Time Status ABG DRAW REQUEST Stat CARDIO 10/12/18 17:11 Completed EKG-(ED ONLY) Stat CARDIO 10/12/18 17:24 Completed NEBULIZER TREATMENT Stat CARDIO 10/12/18 17:12 Completed ABG Stat LAB 10/12/18 17:11 Completed CBC W/ AUTO DIFF Stat LAB 10/12/18 17:20 Completed COMPREHENSIVE METABOLIC PANEL Stat LAB 10/12/18 17:20 Completed FLU A/B MOLECULAR Stat LAB 10/12/18 17:23 Completed MOLECULAR GROUP A STREP Stat LAB 10/12/18 17:23 Completed Ipratropium/Albuterol Neb [Duoneb] MEDS 10/12/18 17:12 Discontinued 1 vial NEB ONCE STA CT CHEST W/O CONTRAST Stat RADS 10/12/18 17:11 Completed Medications Discontinued Medications Generic Name Dose Route Start Last Admin Trade Name Freq PRN Reason Stop Dose Admin Albuterol/Ipratropium 1 vial 10/12/18 17:12 10/12/18 18:04 Duoneb NEB 10/12/18 17:13 1 vial ONCE STA Administration Vital Signs: Temp Pulse Resp BP Pulse Ox 10/12/18 16:58 98.1 F 85 24 161/84 H 92 L Departure - Departure Time of Disposition: 19:00 Disposition: ADMITTED INPATIENT Discharge Problem: CKD (chronic kidney disease), stage III, Lung mass, Shortness of breath Instructions: Chronic Cough (ED), Chronic Kidney Disease (ED) Condition: Good Pt referred to PMD for follow-up: Yes IPMP verified?: No Additional Instructions: Please call your Family Physician as soon as possible to schedule a follow-up appointment.you must have an other C.T. SCAN IN A BOUT 3 MONTHS TIME . YOU SEE TO HAVE A TUMOR IN YOR CHEST WHICH HAS SLIGHTLY INCREASED IN SIZE. Allergies/Adverse Reactions: Allergies Iodinated Contrast- Oral and IV Dye [Iodinated Contrast Media - IV Dye] Adverse Reaction (Verified 10/12/18 17:02) Hives Tetracyclines Adverse Reaction (Verified 10/12/18 17:02) Difficulty Swallowing DIFF SWALLOWING AND HIVES Home Medications: Ambulatory Orders Ranitidine HCl [Zantac] 150 mg PO BEDTIME 06/03/16 Alprazolam [Xanax] 0.5 mg PO QPM 11/19/16 Acetaminophen 325 mg PO Q4HR PRN 12/12/16 Albuterol Sulfate [Proair Hfa] 1 puff INH BEDTIME 05/06/18 Docusate Sodium [Colace] 100 mg PO DAILY 05/06/18 Escitalopram Oxalate [Lexapro] 20 mg PO BID 05/06/18 Fluvastatin Sodium [Lescol Xl] 80 mg PO DAILY 05/06/18 Levothyroxine Sodium [Synthroid] 50 mcg PO QDAC 05/06/18 Ondansetron HCl [Zofran] 4 mg PO Q4-6H PRN 05/06/18 Albuterol Sulfate 0.083% Neb [Albuterol 0.083% Neb] 1 vial NEB RTQ6H PRN Cefdinir 300 mg PO BID 10/12/18 Disposition Discussed With: Patient, Family
[2018-10-12] MEDS ORDERED: TYLENOL PO PRN (18:43)
[2018-10-12] MEDS ORDERED: ZOFRAN TAB PO PRN (18:43)
[2018-10-12] MEDS: SODIUM CHLORIDE 1,000 ML IV SCH (21:59)
[2018-10-12] MEDS ORDERED: LEXAPRO ONE (22:04)
[2018-10-12] MEDS: NON-FORMULARY MEDICATION (Escitalopram Oxalate [Lexapro] 20 MG) PO SCH (22:12)
[2018-10-12] MEDS: ZANTAC PO SCH (22:13)
[2018-10-12] MEDS: SOLU-MEDROL 40 MG IVP SCH (22:13)
[2018-10-12 22:20] VITALS: BMI 26.6
[2018-10-12] MEDS ORDERED: XANAX ONE (22:50)
[2018-10-12] MEDS ORDERED: XANAX PO SCH (23:00)
[2018-10-12] MEDS: DUONEB NEB SCH (23:05)
[2018-10-13] MEDS: DUONEB NEB SCH ×3 (04:55→17:02)
[2018-10-13] MEDS ORDERED: SYNTHROID ONE (05:45)
[2018-10-13] MEDS: SYNTHROID PO SCH (05:49)
[2018-10-13] MEDS ORDERED: DUONEB NEB STA (09:04)
[2018-10-13] MEDS ORDERED: XANAX PO PRN (09:05)
[2018-10-13] MEDS: SOLU-MEDROL 40 MG IVP SCH ×2 (09:18→21:09)
[2018-10-13] MEDS: COLACE PO SCH ×2 (09:18→12:41)
[2018-10-13] MEDS ORDERED: LASIX ONE (09:34)
[2018-10-13] MEDS ORDERED: MORPHINE 2 MG/ML SYRINGE ONE (09:34)
[2018-10-13] MEDS ORDERED: LASIX IVP STA (09:36)
[2018-10-13] MEDS ORDERED: MORPHINE 2 MG/ML SYRINGE IVP STA ×2 (09:36→09:52)
[2018-10-13] MEDS: ROCEPHIN 1 GM VIAL 1 GM in SODIUM CHLORIDE 50 ML IV SCH (10:18)
[2018-10-13] MEDS: NON-FORMULARY MEDICATION (Escitalopram Oxalate [Lexapro] 20 MG) PO SCH (10:40)
[2018-10-13] MEDS ORDERED: MORPHINE 2 MG/ML SYRINGE IVP PRN (10:52)
[2018-10-13] MEDS ORDERED: ATIVAN ONE (11:09)
[2018-10-13] MEDS: ATIVAN IVP PRN ×2 (11:20→21:09)
[2018-10-13] MEDS: SODIUM CHLORIDE 1,000 ML IV SCH ×2 (11:29)
[2018-10-13] MEDS: FLUVASTATIN SODIUM 80 MG PO SCH (12:40)
[2018-10-13] MEDS ORDERED: ZOFRAN 4 MG/2 ML IVP PRN ×2 (14:22→17:15)
[2018-10-13] MEDS ORDERED: SOLU-MEDROL 40 MG IVP STA (14:35)
[2018-10-13] MEDS: MORPHINE IV SCH (15:40)
[2018-10-13] MEDS ORDERED: MORPHINE IV ONE (15:40)
[2018-10-13] MEDS ORDERED: SODIUM CHLORIDE IV ONE (15:40)
[2018-10-13] MEDS: SODIUM CHLORIDE IV SCH (15:40)
[2018-10-13] MEDS ORDERED: XANAX PO SCH (17:00)
[2018-10-13] MEDS ORDERED: ZOFRAN 4 MG/2 ML ONE (19:17)
[2018-10-13] MEDS ORDERED: ALBUTEROL 0.083% NEB NEB ONE (20:17)
[2018-10-13] MEDS: ALBUTEROL 0.083% NEB NEB PRN (20:50)
[2018-10-13] MEDS: ZANTAC PO SCH (21:09)
[2018-10-14] MEDS: DUONEB NEB SCH ×3 (00:15→11:09)
[2018-10-14] MEDS: ATIVAN IVP PRN ×3 (04:52→18:01)
[2018-10-14] MEDS: SYNTHROID PO SCH (05:49)
[2018-10-14] MEDS: ROCEPHIN 1 GM VIAL 1 GM in SODIUM CHLORIDE 50 ML IV SCH (08:59)
[2018-10-14] MEDS ORDERED: NON-FORMULARY MEDICATION (Escitalopram Oxalate [Lexapro] 20 MG) PO SCH (09:00)
[2018-10-14] MEDS: LEXAPRO PO SCH (09:20)
[2018-10-14] MEDS: FLUVASTATIN SODIUM 80 MG PO SCH (09:21)
[2018-10-14] MEDS: SOLU-MEDROL 40 MG IVP SCH ×2 (09:21→20:48)
[2018-10-14] MEDS: COLACE PO SCH (09:29)
[2018-10-14] MEDS: SODIUM CHLORIDE 1,000 ML IV SCH ×2 (13:22→16:07)
[2018-10-14] MEDS: ALBUTEROL 0.083% NEB NEB PRN ×2 (20:37→22:49)
[2018-10-14] MEDS: ZANTAC PO SCH (20:48)
[2018-10-15] MEDS: SYNTHROID PO SCH (05:33)
[2018-10-15] MEDS ORDERED: SODIUM CHLORIDE IV ONE (07:27)
[2018-10-15] MEDS: MORPHINE IV SCH (07:27)
[2018-10-15] MEDS: SODIUM CHLORIDE IV SCH (07:27)
[2018-10-15] MEDS ORDERED: MORPHINE IV ONE (07:27)
[2018-10-15] MEDS: SODIUM CHLORIDE 1,000 ML IV SCH (07:39)
[2018-10-15] MEDS ORDERED: TRANSDERM-SCOP 1.5 MG PATCH TD ONE (08:01)
[2018-10-15] MEDS: TRANSDERM-SCOP 1.5 MG PATCH TD PRN (08:03)
[2018-10-15] MEDS: ROCEPHIN 1 GM VIAL 1 GM in SODIUM CHLORIDE 50 ML IV SCH (08:42)
[2018-10-15] MEDS: LEXAPRO PO SCH (08:43)
[2018-10-15] MEDS: SOLU-MEDROL 40 MG IVP SCH ×2 (08:43→21:15)
[2018-10-15] MEDS: COLACE PO SCH (08:43)
[2018-10-15] MEDS: FLUVASTATIN SODIUM 80 MG PO SCH (08:44)
[2018-10-15] MEDS ORDERED: SODIUM CHLORIDE 1,000 ML IV SCH (13:00)
[2018-10-15] MEDS: ATIVAN IVP PRN (21:15)
[2018-10-15] MEDS: ZANTAC PO SCH (21:28)
[2018-10-16] MEDS: SYNTHROID PO SCH (05:43)
[2018-10-16] MEDS: SODIUM CHLORIDE IV SCH ×2 (06:17→17:46)
[2018-10-16] MEDS: MORPHINE IV SCH ×2 (06:17→17:46)
[2018-10-16] MEDS: ROCEPHIN 1 GM VIAL 1 GM in SODIUM CHLORIDE 50 ML IV SCH (09:44)
[2018-10-16] MEDS: SOLU-MEDROL 40 MG IVP SCH (09:44)
[2018-10-16] MEDS ORDERED: ROXANOL 20 MG/ML ONE (15:00)
[2018-10-16] MEDS: ROXANOL 20 MG/ML PO SCH ×5 (15:04→23:17)
[2018-10-16] MEDS ORDERED: ATIVAN PO PRN (15:20)
[2018-10-16] MEDS ORDERED: ATIVAN ONE ×4 (16:34→23:10)
[2018-10-16] MEDS: ATIVAN PO PRN ×3 (19:18→23:17)
[2018-10-17] MEDS ORDERED: ATIVAN ONE ×3 (01:09→05:52)
[2018-10-17] MEDS: ATIVAN PO PRN ×3 (01:11→05:52)
[2018-10-17] MEDS: ROXANOL 20 MG/ML PO SCH ×11 (01:12→22:19)
[2018-10-18] MEDS: ROXANOL 20 MG/ML PO SCH ×13 (00:27→23:09)
[2018-10-18] MEDS: TRANSDERM-SCOP 1.5 MG PATCH TD PRN (09:00)
[2018-10-19] MEDS: ROXANOL 20 MG/ML PO SCH ×11 (00:57→21:59)
--- NOTE | 2018-10-19 22:14 | ED.PDOC ---
Procedures - IV/Art Line Insertion Location: lt forearm Type of Line: Peripheral IV Invasive Line/IV Catheter Gauge: 22 Number of Attempts: 2 Blood Return Positive: Yes Invasive Line/IV Flushes Without Difficulty: Yes Conscious Sedation - Pre-op Assessment Weight: 123 lb Surgical History: APPENDECTOMY, GALLBLADDER, HYSTERECTOMY, HERNIA SURGERY, TONSILLECTOMY, BLADDER SURG DUE TO CA - Medical History Past Medical History: Hypertension, Cancer, Thyroid, High Lipids, COPD, Asthma, GERD, Renal Failure, Depression, Anxiety, Arthritis Other History: Dialysis patient on [id number] - Physical Exam Heart Rate/Rhythm: Regular Rate
[2018-10-19] MEDS ORDERED: MORPHINE IV SCH (22:30)
[2018-10-19] MEDS ORDERED: SODIUM CHLORIDE 1,000 ML IV SCH (22:30)
[2018-10-19] MEDS ORDERED: SODIUM CHLORIDE IV SCH (22:30)
[2018-10-19] MEDS ORDERED: SODIUM CHLORIDE IV ONE (23:30)
[2018-10-19] MEDS ORDERED: MORPHINE IV ONE (23:30)
[2018-10-20] MEDS: ROXANOL 20 MG/ML PO SCH (02:53)
[2018-10-20] MEDS ORDERED: MORPHINE IV SCH (08:30)
[2018-10-20] MEDS ORDERED: SODIUM CHLORIDE IV SCH (08:30)
[2018-10-20 14:33] VITALS: BP 141/78; TEMP 99.5
--- NOTE | 2019-08-02 13:42 | HP ---
CHIEF COMPLAINT: She is coughing DISCUSSION: This is a very pleasant 88 year old lady with multiple medical problems including history of bladder cancer with metastasis, hypertension and atrial fibrillation who presented to the emergency department with cough and flu like symptoms. She has been ill for three or four days with cough, fever and shortness of breath. She was seen in the emergency department with the above history. She was evaluated by Dr. Dangelo in the emergency department. She was noted to have worsening lung mass associated with chronic kidney disease stage 3. Dr. Dangelo felt the patient needed to be admitted because of her relative shortness of breath and hypoxia and she was admitted to my services. PAST MEDICAL HISTORY: MEDICATIONS: Zantac Xanax Tylenol Albuterol Colace Lexapro Lescol Synthroid Zofran Albuterol Cefdinir ALLERGIES: IV contract Tetracycline PAST MEDICAL HISTORY: History of bladder cancer with metastasis Anxiety Hyperlipidemia Hypothyroidism COPD History of COPD and asthma History of atrial fibrillation PAST SURGICAL HISTORY: Hysterectomy Tonsillectomy Hernia repair SOCIAL HISTORY: Previous smoker, no alcohol or illicit drug use. FAMILY HISTORY: Reviewed and thought not to be pertinent to discussion. REVIEW OF SYSTEMS: Moderately ill with low grade fever, chills, cough, shortness of breath with conversional dyspnea. She had not abdominal discomforts. Short of breath with any exertion. PHYSICAL EXAMINATION: V/S: Temperature 98.1, pulse 85, respiratory rate 24, blood pressure 121/86 HEENT: Pupils are round.Confirms an ill appearing elder lady appears older than her stated age. NECK: Supple. CHEST: Reveals rales. CARDIOVASCULAR: Regular rate and rhythm. ABDOMEN: Soft, nontender. EXTREMITIES: Distal extremities without cyanosis or edema. ASSESSMENT: 1. Worsening shortness of breath 2. Lung mass probably metastatic bladder cancer 3. Chronic kidney disease stage 3 PLAN: 1. Discuss with the family we are initiating oxygen and further treatment as noted for Dr. Dangelo's orders 2. Please orders. MTDD
--- NOTE | 2019-08-02 13:54 | DS ---
PRINCIPAL DIAGNOSIS: 1. BLADDER CA WITH DISTANT METASTASIS 2. DYSPNEA 3. CHRONIC DISEASE STAGE V ON HEMODIALYSIS DISCUSSION: This was an 88 year old with chronic renal failure on dialysis as well as bladder cancer with metastasis. She was admitted via the emergency room with cough, congestion and shortness of breath. She was treated initially for flu like symptoms cough and shortness of breath. However, she continued to decline. Family declined restarting an IV and wanted only comfort and supportive measure and to that the patient was transferred. The family wish to discontinue all further dialysis and wanted comfort care in the hospital for that reason she is switched over into comfort care. PATEL
== END 2018-10-20 15:55 | disposition swing bed (61) | DRG 684 ==
LOC: ED 16:58 → MEDSURG A 19:20
PROVIDERS: ADMIT Family Medicine; ATTEND Family Medicine
DX: R91.1 Solitary pulmonary nodule; N18.3 Chronic kidney disease, stage 3 (moderate); R06.00 Dyspnea, unspecified; R05 Cough; C67.9 Malignant neoplasm of bladder, unspecified; R53.81 Other malaise; R06.02 Shortness of breath; J06.9 Acute upper respiratory infection, unspecified; R09.81 Nasal congestion